=== PATIENT | male | born 1950 | race Caucasian/White ===

== ENCOUNTER 2017-12-09 15:15 | Emergency (ER) | payer MEDICARE ==
[2017-12-09 15:50] LABS: BASO # 0.1 10^3/uL (0.0-0.2); EOS # 0.2 10^3/uL (0.0-0.50); EOS % 2.4 % (0.0-3.0); HEMATOCRIT 51.4 % (42.0-52.0); HEMOGLOBIN 16.7 g/dl (13.5-17.5); IMMATURE GRANULOCYTE % 0.3 % (0-3.0); LYMPH # 1.2 10^3/uL (1.5-4.5); MEAN CORPUSCULAR HEMOGLOBIN 30.3 pg (27.0-33.0); MEAN CORPUSCULAR HGB CONC 32.5 g/dl (32.0-36.5); MEAN CORPUSCULAR VOLUME 93.3 fl (80.0-96.0); MONO # 0.8 10^3/uL (0.0-0.8); MONO % 8.3 % (0.0-5.0); NEUTROPHILS # 7.4 10^3/uL (1.8-7.7); PLATELET COUNT, AUTOMATED 220 10^3/uL (150-450); RED BLOOD COUNT 5.51 10^6/uL (4.30-6.10); RED CELL DISTRIBUTION WIDTH 14.4 % (11.5-14.5); WHITE BLOOD COUNT 9.7 10^3/uL (4.0-10.0)
[2017-12-09] MEDS: methylPREDNISolone INJ 125 MG/2 ML VIAL (J2930) IV (15:55)
[2017-12-09] MEDS: IPRATROPIUM 0.5MG/ALBUTEROL 2.5MG INH SOL UD 3ML (DUONEB)(J7620) NEB (16:20)
[2017-12-09 16:26] LABS: ANION GAP 7 MEQ/L (8-16); BLOOD UREA NITROGEN 13 MG/DL (7-18); CALCIUM LEVEL 9.3 MG/DL (8.8-10.2); CARBON DIOXIDE LEVEL 35 MEQ/L (21-32); CHLORIDE LEVEL 100 MEQ/L (98-107); CK-MB VALUE MASS 2.6 NG/ML (<3.6); CPK CREATINE PHOSPHOKINASE 155 U/L (39-308); CREATININE FOR GFR 0.74 MG/DL (0.70-1.30); GLOMERULAR FILTRATION RATE > 60.0 (>49); GLUCOSE, FASTING 135 MG/DL (70-100); MB/CK RELATIVE INDEX 1.67 (< OR =4); NT-PRO BNP 1274 PG/ML (<125); POTASSIUM SERUM 3.5 MEQ/L (3.5-5.1); SODIUM LEVEL 142 MEQ/L (136-145); TROPONIN I < 0.02 NG/ML (< 0.10)
[2017-12-09 16:27] LABS: LACTIC ACID SEPSIS PROTOCOL 1.5 MMOL/L (0.4-2.0)
[2017-12-09] MEDS: FUROSEMIDE 100 MG/10 ML VIAL (J1940) IV (17:30)
[2017-12-09 18:44] LABS: ABG BASE EXCESS 6.6 (-2.0-2.0); ABG HCO3 33.1 MEQ/L (22.0-26.0); ABG O2 SATURATION 87.1 % (95.0-99.0); ABG PARTIAL PRESSURE CO2 52.4 mmHg (35.0-45.0); ABG STANDARD HCO3 30.1 MEQ/L (22.0-26.0); ABG TOTAL CO2 34.7 MEQ/L (23.0-31.0); ABG pH (ARTERIAL) 7.418 UNITS (7.350-7.450)
[2017-12-09 18:46] LABS: ABG PARTIAL PRESSURE O2 49.3 mmHg (75.0-100.0)
[2017-12-09] MEDS ORDERED: ISOVUE-370 76% 100ML VIAL (Q9967) As Ordered (19:35)
== END 2017-12-09 20:49 | disposition left against medical advice (07) ==
LOC: M ED 15:15
DX: R09.02 Hypoxemia (principal); I50.9 Heart failure, unspecified; R06.02 Shortness of breath; Z95.0 Presence of cardiac pacemaker; I51.7 Cardiomegaly; I45.10 Unspecified right bundle-branch block; E78.5 Hyperlipidemia, unspecified; J44.9 Chronic obstructive pulmonary disease, unspecified; F41.9 Anxiety disorder, unspecified; K50.90 Crohn's disease, unspecified, without complications; Z90.49 Acquired absence of other specified parts of digestive tract; Z72.0 Tobacco use; Z53.21 Procedure and treatment not carried out due to patient leaving prior to being seen by health care provider
CPT/HCPCS: J1940

== ENCOUNTER 2020-01-03 12:14 | Inpatient (IN) | payer MEDICARE ==
[~2020-01-03] VITALS: Ht 175.3 cm; Wt 128.0 kg
[2020-01-03] MEDS: ENOXAPARIN 40MG/0.4ML SYRINGE (J1650 PER 10MG) SC SCH (09:00)
[~2020-01-03 12:14] MED LIST: AMLODIPINE PO; ASPI81TA26 PO; ATEN100T PO; ATEN50TA2 PO; CART240C3 PO; EXFO10TA2 PO; HYDR50TAB PO; KLOR10TA76 PO; PARO20TA4 PO; PRAV80TA2 PO; PRED-351 PO; SPIR1CAP INH; TORS10TA3 PO; TRIL135C6 PO; VALSARTAN PO; VITA-121 PO; VITMTA PO; ZETI10TA16 PO
[2020-01-03 13:18] LABS: BASO # 0.1 10^3/uL (0.0-0.2); EOS # 0.2 10^3/uL (0.0-0.5); EOS % 1.9 % (0.0-3.0); HEMATOCRIT 50.7 % (42.0-52.0); HEMOGLOBIN 15.7 g/dl (13.5-17.5); LYMPH # 0.8 10^3/uL (1.5-5.0); LYMPH % 9.6 % (24.0-44.0); MEAN CORPUSCULAR HEMOGLOBIN 28.3 pg (27.0-33.0); MEAN CORPUSCULAR VOLUME 91.5 fl (80.0-96.0); MONO # 0.7 10^3/uL (0.0-0.8); NEUTROPHILS # 6.1 10^3/uL (1.5-8.5); NEUTROPHILS % 78.2 % (36.0-66.0); PLATELET COUNT, AUTOMATED 268 10^3/uL (150-450); RED BLOOD COUNT 5.54 10^6/uL (4.30-6.10); WHITE BLOOD COUNT 7.9 10^3/uL (4.0-10.0)
[2020-01-03 13:25] LABS: ALBUMIN 3.1 GM/DL (3.2-5.2); ALT/SGPT 21 U/L (12-78); BILIRUBIN,DIRECT 0.2 MG/DL (0.0-0.2); BILIRUBIN,TOTAL 0.5 MG/DL (0.2-1.0); BLOOD UREA NITROGEN 27 MG/DL (7-18); CALCIUM LEVEL 9.7 MG/DL (8.8-10.2); CARBON DIOXIDE LEVEL 35 MEQ/L (21-32); CHLORIDE LEVEL 99 MEQ/L (98-107); CREATININE FOR GFR 0.98 MG/DL (0.70-1.30); GLOMERULAR FILTRATION RATE > 60.0 (>42); GLUCOSE, FASTING 99 MG/DL (70-100); NT-PRO BNP 4477 PG/ML (<125); POTASSIUM SERUM 3.9 MEQ/L (3.5-5.1); SODIUM LEVEL 138 MEQ/L (136-145); TOTAL PROTEIN 7.4 GM/DL (6.4-8.2)
[2020-01-03] MEDS ORDERED: FUROSEMIDE 40MG/4ML VIAL (J1940) IV ONE (13:45)
[2020-01-03] MEDS ORDERED: VITAD1000T PO (14:09)
[2020-01-03] MEDS ORDERED: FENO135C6 PO (14:09)
[2020-01-03] MEDS ORDERED: METF-839 PO (14:09)
[2020-01-03] MEDS ORDERED: TORS10TA3 PO (14:09)
[2020-01-03] MEDS ORDERED: POTA10TA16 PO (14:09)
--- NOTE | 2020-01-03 14:28 | REP ---
CHEST, SINGLE VIEW: Single view of the chest is performed and compared to several prior studies, most recently 12/09/2017. There is moderate cardiomegaly. There is pulmonary venous hypertension. There is a small right pleural effusion. There are increased interstitial markings in the lung bases which may represent mild bibasilar interstitial infiltrate/edema. There is a left dual-lead pacemaker which appears to be in good position. The mediastinal silhouette is unchanged. IMPRESSION: Moderate cardiomegaly with small right effusion. Possible mild bibasilar interstitial infiltrate/edema. Electronically Signed by Oswald Gardiner MD 01/04/2020 09:30 A
[2020-01-03 14:30] VITALS: BP 130/79
[2020-01-03 16:00] VITALS: BP 122/73
[2020-01-03] MEDS: FUROSEMIDE 40MG/4ML VIAL (J1940) IV SCH (17:51)
[2020-01-03 18:39] LABS: CK-MB VALUE MASS 1.4 NG/ML (<3.6); CPK CREATINE PHOSPHOKINASE 63 U/L (39-308); MB/CK RELATIVE INDEX 2.22 (< OR =4); TROPONIN I < 0.02 NG/ML (< 0.10)
[2020-01-03] MEDS ORDERED: SLF 3 ML SYR IV PRN (19:00)
[2020-01-03 20:00] VITALS: BP 122/65
[2020-01-03] MEDS: ASPIRIN 81 MG ENTERIC TAB PO SCH (20:52)
[2020-01-03] MEDS: PRAVASTATIN 20 MG TAB PO SCH (20:53)
[2020-01-03] MEDS: VITAMIN D 1,000 INTERNATIONAL UNITS TABLET PO SCH (20:53)
[2020-01-03] MEDS: atenoloL 50 MG TAB PO SCH (20:53)
[2020-01-03] MEDS: POTASSIUM CHLORIDE 10 MEQ SR TABLET PO SCH (20:53)
[2020-01-03] MEDS: SLF 3 ML SYR IV SCH (20:54)
[2020-01-04] VITALS: BP 116/59
--- NOTE | 2020-01-04 00:27 | ECGEPIP ---
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
[2020-01-04] MEDS: FUROSEMIDE 40MG/4ML VIAL (J1940) IV SCH ×5 (00:29→23:52)
[2020-01-04 01:32] LABS: CK-MB VALUE MASS 1.7 NG/ML (<3.6); CPK CREATINE PHOSPHOKINASE 69 U/L (39-308); MB/CK RELATIVE INDEX 2.46 (< OR =4); TROPONIN I < 0.02 NG/ML (< 0.10)
[2020-01-04 04:00] VITALS: BP 115/66
[2020-01-04] MEDS: SLF 3 ML SYR IV SCH ×3 (05:44→22:08)
[2020-01-04 05:58] LABS: BASO # 0.1 10^3/uL (0.0-0.2); BASO % 0.7 % (0.0-1.0); EOS # 0.1 10^3/uL (0.0-0.5); EOS % 1.5 % (0.0-3.0); HEMOGLOBIN 15.5 g/dl (13.5-17.5); LYMPH # 0.7 10^3/uL (1.5-5.0); MEAN CORPUSCULAR HEMOGLOBIN 28.7 pg (27.0-33.0); MEAN CORPUSCULAR VOLUME 92.4 fl (80.0-96.0); MONO # 0.7 10^3/uL (0.0-0.8); MONO % 9.3 % (0.0-5.0); NEUTROPHILS # 5.8 10^3/uL (1.5-8.5); NEUTROPHILS % 79.4 % (36.0-66.0); PLATELET COUNT, AUTOMATED 235 10^3/uL (150-450); RED BLOOD COUNT 5.41 10^6/uL (4.30-6.10); WHITE BLOOD COUNT 7.3 10^3/uL (4.0-10.0)
[2020-01-04 06:17] LABS: BLOOD UREA NITROGEN 19 MG/DL (7-18); CALCIUM LEVEL 8.9 MG/DL (8.8-10.2); CARBON DIOXIDE LEVEL 38 MEQ/L (21-32); CHLORIDE LEVEL 94 MEQ/L (98-107); CK-MB VALUE MASS 1.9 NG/ML (<3.6); CPK CREATINE PHOSPHOKINASE 62 U/L (39-308); CREATININE FOR GFR 0.88 MG/DL (0.70-1.30); GLOMERULAR FILTRATION RATE > 60.0 (>42); GLUCOSE, FASTING 92 MG/DL (70-100); MB/CK RELATIVE INDEX 3.06 (< OR =4); POTASSIUM SERUM 3.2 MEQ/L (3.5-5.1); SODIUM LEVEL 139 MEQ/L (136-145); TROPONIN I < 0.02 NG/ML (< 0.10)
[2020-01-04 07:03] VITALS: BP 118/63
[2020-01-04] MEDS: TIOTROPIUM INHALER/CAPSULE (SPIRIVA) INH SCH (07:08)
[2020-01-04] MEDS ORDERED: POTASSIUM CHLORIDE 10 MEQ SR TABLET PO ONE (07:15)
[2020-01-04] MEDS: ENOXAPARIN 40MG/0.4ML SYRINGE (J1650 PER 10MG) SC SCH (08:13)
[2020-01-04] MEDS: PARoxetine 20 MG TAB PO SCH (08:14)
[2020-01-04] MEDS: VITAMIN D 1,000 INTERNATIONAL UNITS TABLET PO SCH ×2 (08:14→20:48)
[2020-01-04] MEDS: atenoloL 50 MG TAB PO SCH ×2 (08:14→20:43)
--- NOTE | 2020-01-04 08:47 | IPNPDOC ---
Text Note Date of Service The patient was seen on 01/04/20. NOTE Subjective: Patient seen and examined at bedside. States he is feeling much better today. Breathing has improved. No acute overnight events reported. No new medical complaints this morning. Objective: General: NAD, sitting comfortably in chair HEENT: NC/AT, EOMI Lungs: diminished breath sounds b/l Heart: +S1S2, RRR Abd: soft, obese, NT, +BS Ext: b/l LE edema, b/l chronic venous stasis changes A/P: 69 yo male for decompensated congestive heart failure #CHF - echo pending - follows with Dr. Mcmullen - iv lasix H&P not available at time of documentation. VS,Fishbone, I+O VS, Fishbone, I+O Laboratory Tests 01/03/20 12:24 01/04/20 05:34 Vital Signs Date Time Temp Pulse Resp B/P (MAP) Pulse Ox O2 Delivery O2 Flow Rate FiO2 01/04/20 08:14 60 01/04/20 08:14 118/63 01/04/20 07:03 97.1 18 92 Nasal Cannula 4.0 I&O- Last 24 Hours up to 6 AM 01/04/20 06:00 Intake Total 390 ml Output Total 4140 ml Balance -3750 ml FRANTZ LAGUNAS MD Jan 04, 2020 08:47
[2020-01-04 12:00] VITALS: BP 105/59
[2020-01-04 16:00] VITALS: BP 108/55
[2020-01-04 18:00] VITALS: BP 108/62
[2020-01-04] MEDS: PRAVASTATIN 20 MG TAB PO SCH (20:48)
[2020-01-04] MEDS: ASPIRIN 81 MG ENTERIC TAB PO SCH (20:48)
[2020-01-04] MEDS: POTASSIUM CHLORIDE 10 MEQ SR TABLET PO SCH (20:48)
[2020-01-05] VITALS: BP 119/62
[2020-01-05 04:00] VITALS: BP 136/72
[2020-01-05 05:29] LABS: BASO # 0.1 10^3/uL (0.0-0.2); BASO % 0.8 % (0.0-1.0); EOS # 0.1 10^3/uL (0.0-0.5); EOS % 1.5 % (0.0-3.0); HEMATOCRIT 51.5 % (42.0-52.0); HEMOGLOBIN 15.6 g/dl (13.5-17.5); LYMPH # 0.8 10^3/uL (1.5-5.0); LYMPH % 10.3 % (24.0-44.0); MEAN CORPUSCULAR HEMOGLOBIN 28.7 pg (27.0-33.0); MEAN CORPUSCULAR HGB CONC 30.3 g/dl (32.0-36.5); MEAN CORPUSCULAR VOLUME 94.7 fl (80.0-96.0); MONO # 0.7 10^3/uL (0.0-0.8); MONO % 9.1 % (0.0-5.0); NEUTROPHILS # 5.9 10^3/uL (1.5-8.5); PLATELET COUNT, AUTOMATED 231 10^3/uL (150-450); RED BLOOD COUNT 5.44 10^6/uL (4.30-6.10); WHITE BLOOD COUNT 7.6 10^3/uL (4.0-10.0)
[2020-01-05 05:49] LABS: BLOOD UREA NITROGEN 18 MG/DL (7-18); CALCIUM LEVEL 8.6 MG/DL (8.8-10.2); CARBON DIOXIDE LEVEL 40 MEQ/L (21-32); CHLORIDE LEVEL 94 MEQ/L (98-107); CREATININE FOR GFR 0.85 MG/DL (0.70-1.30); GLOMERULAR FILTRATION RATE > 60.0 (>42); GLUCOSE, FASTING 90 MG/DL (70-100); POTASSIUM SERUM 3.2 MEQ/L (3.5-5.1); SODIUM LEVEL 140 MEQ/L (136-145)
[2020-01-05] MEDS: FUROSEMIDE 40MG/4ML VIAL (J1940) IV SCH ×3 (06:00→17:34)
[2020-01-05] MEDS: SLF 3 ML SYR IV SCH ×3 (06:00→21:24)
--- NOTE | 2020-01-05 07:08 | HPE ---
DATE OF ADMISSION: 01/03/2020 CHIEF COMPLAINT: Shortness of breath. HISTORY OF PRESENTING ILLNESS: This is a 69-year-old male with history significant for obesity, diabetes, chronic obstructive pulmonary disease (COPD), congestive heart failure, diastolic dysfunction, restless legs, nonalcoholic steatohepatitis, hypertension, anxiety, vitamin D deficiency, Crohn disease, bowel obstruction, pacemaker placement due to bradycardia, active tobacco use, and hyperlipidemia with bowel resection due to bowel obstruction, laceration of the distal left little finger, and laceration of the tip of the left index finger. Was in his usual state of health until about 3 weeks ago, when he noticed increasing shortness of breath, lower extremity edema, difficulty walking with dyspnea on exertion, and 18-pound weight gain. Patient says that the "fluid buildup got so bad that blisters started weeping in his legs." He also says that he has had increasing abdominal distention. Has felt that he was having difficulty lying flat and has been sleeping on his recliner. Patient admits to fluid and dietary indiscretion. Has not been put on fluid restriction and admits to "eating crap." Typical meals are usually things that he picks up from [employer], such as sliders, mccurdy and egg croissant sandwiches, or ham sandwiches. Patient says that he does not cook at home or eat at restaurants, usually just picks up things everywhere. He otherwise denies any chest pain, pressure or tightness, lightheadedness, or dizziness. Denies any palpitations. Has had no prior episode of hospital admission for heart failure. Never had coronary artery disease (CAD) or myocardial infarction (MN) in the past. He denied any history of atrial fibrillation, atrial flutter, multifocal atrial tachycardia (MAT). Patient has never been evaluated by pulmonary function testing for COPD but was diagnosed with COPD by his primary care physician. Patient was never sent for a sleep study for obstructive sleep apnea and says that he is not sure if he snores at night, as he lives by himself. Patient otherwise denies any fever or chills, changes in vision, rhinorrhea, diplopia, blurred vision, sore throat, tinnitus, vertigo. Denies any dysuria, urgency, frequency, fever, chills, flank pain. No nausea, vomiting, diarrhea. No abdominal pain. Patient denies any paresthesias. All other systems negative. In the emergency room (ER), he was found to be significantly fluid overloaded with rales and 3+ pitting edema to the sacrum. Chest x-ray shows bibasilar edema and small right pleural effusion. Hospitalist was called to admit for congestive heart failure. He was found to be hypoxic, 81% on room air. PAST MEDICAL HISTORY: 1. Congestive heart failure with preserved systolic function, 65%. 2. Left ventricular hypertrophy (LVH). 3. Moderate pulmonary hypertension. 4. Grade 2 diastolic dysfunction on echocardiogram done by Dr. Meneses 03/14/2016. 5. Morbid obesity. 6. COPD. 7. Depression. 8. Hypertension. 9. Crohn disease. 10. Hyperlipidemia. 11. Pacemaker placement due to bradycardia. 12. Restless leg syndrome. 13. Depression. 14. Nonalcoholic steatohepatitis. 15. Impotence. PAST SURGICAL HISTORY: 1. Amputation distal left little finger. 2. Laceration of tip of the left index finger. 3. Pacemaker insertion. 4. Bowel resection due to small bowel obstruction 1998. HOME MEDICATION: - Farxiga 5 mg - diltiazem 240 mg - baclofen 10 mg - fenofibric acid 135 mg daily - Prevacid 80 mg - metformin 500 mg - hydroxyzine 25 daily - amlodipine/valsartan 10/320 one tablet daily - atenolol 50 mg daily - Spiriva inhaled 18 mcg - Paxil 20 mg daily - potassium 10 mEq - torsemide 10 mg - hydrochlorothiazide 50 mg - vitamin D 1000 units daily - aspirin 81 daily - Zetia 10 mg daily - multivitamin one tablet daily ALLERGIES: To REQUIP. SOCIAL HISTORY: . Lives alone. Completed 12th grade education. Patient retired at the age of 57 after working for [employer]. Patient continues to smoke a pack of cigarettes a day. Drank six packs of beer previously, currently down to 3-4 beers a week. Patient denies any heroin or cocaine use but occasional marijuana use. REVIEW OF SYSTEMS: Per history of presenting illness (HPI). 12-point system otherwise negative. PHYSICAL EXAMINATION: Temperature 97.1, pulse 60, respiratory rate 24, blood pressure 122/73, 81% on room air, 88% on 2 liters nasal cannula. Generally: Patient is awake, alert, oriented to person, place, and time. Appears his stated age. Positive jugular venous distention (JVD). No thyromegaly or cervical lymphadenopathy. Moist mucous membranes. No conversational dyspnea. Patient has no pallor, icterus, or jaundice. Lungs: Diminished with bilateral rales. Heart: S1, S2, sinus rhythm. No murmurs, rubs, or gallops. Displaced point of maximal impulse. Abdomen: Obese, soft, nontender. Positive fluid wave. Significant erythema under the pannus. Extremities: Chronic venous stasis changes with excoriations and 3+ pitting edema to the sacrum. LABORATORY DATA: White count 7.9, hemoglobin 15, hematocrit 50, platelet count 268. Sodium 138, potassium 3.9, chloride 99, bicarbonate 35, BUN 27, creatinine 0.98, glucose of 99, calcium 9.7, total bilirubin 0.5, direct bilirubin 0.2, AST 18, ALT 21, alkaline phosphatase 54, BNP 4477, total protein 7.4, albumin of 3.1. ASSESSMENT AND PLAN: This is a 69-year-old morbidly obese male with body mass index (BMI) 47.8, probable sleep apnea, chronic obstructive pulmonary disease, not on home oxygen or steroid dependent, diastolic heart failure, ejection fraction (EF) of 65% on echocardiogram in 2016, diabetes, hypertension, metabolic syndrome, nonalcoholic steatohepatitis, essential hypertension, hypercholesterolemia, Crohn disease with small bowel resection, active smoker, and alcohol abuse, presents to the emergency room with 18-pound weight gain over the past 3 weeks and worsening lower extremity edema, dyspnea on exertion, dyspnea at rest, found to have congestive heart failure exacerbation. EKG on arrival showed paced rhythm, ventricular rate of 60. IMPRESSION: 1. Acute on chronic congestive heart failure (CHF) exacerbation with preserved systolic ejection fraction, ejection fraction of 65% on echocardiogram in 2016. Patient will be kept on strict intake and output, daily weights, fluid restriction of 2 liters. Lasix 40 IV every 6 hours until patient is euvolemic. Cardiac markers will be checked every 6 hours to rule out acute coronary syndrome. Will check lipid panel in the morning, TSH, and magnesium, potassium to be replated if the potassium level is less than 3.5, magnesium less than 2. Telemetry monitoring to rule out arrhythmia as cause of patient's acute exacerbation. Patient clearly admits to dietary indiscretion with both fluid restriction as well as salt intake and admits to eating out most of the time by picking up food from [employer]. 2. Hypertension. Patient takes atenolol 50 mg every morning and 100 mg nightly. Will continue but with holding parameters as well as diltiazem 240 mg daily. His hydrochlorothiazide will be held for now. 3. Type 2 diabetes. Hold off on metformin in light of acute congestive heart failure. Will place on sliding scale, consistent-carbohydrate diet, and fingersticks before food, nightly. 4. Depression. On paroxetine 20 daily. 5. Dyslipidemia. On pravastatin. 6. Chronic obstructive pulmonary disease. Nebulizers as needed. Continue on Spiriva. Patient has a healthcare proxy, his sister, Yael Mitchell. He does not have the current phone number at this time. He is a FULL CODE. MTDD
[2020-01-05] MEDS: TIOTROPIUM INHALER/CAPSULE (SPIRIVA) INH SCH (07:22)
[2020-01-05 08:00] VITALS: BP 119/63
[2020-01-05 08:05] LABS: NT-PRO BNP 2892 PG/ML (<125)
--- NOTE | 2020-01-05 08:07 | IPNPDOC ---
Text Note Date of Service The patient was seen on 01/05/20. NOTE Subjective: Patient seen and examined at bedside. No acute overnight events reported. No new medical complaints this morning. Objective: General: NAD, sitting comfortably in chair HEENT: NC/AT, EOMI Lungs: diminished breath sounds b/l Heart: +S1S2, RRR Abd: soft, obese, NT, +BS Ext: b/l LE edema, b/l chronic venous stasis changes A/P: 69 yo male for decompensated congestive heart failure #CHF - known history of HFpEF - echo pending - follows with Dr. Mcmullen - nano wright - daily weights, I/O's - CT chest today for further info - results seen - d/w pulm - continue with cu rrent management for CHF # Moderate pulmonary hypertension. - further contributing factor to SOB #Morbid obesity. - complicates care - suspect underlying OHS/AAMIR #COPD. #Hypertension. #Crohn disease. #Hyperlipidemia. #Pacemaker placement due to bradycardia. #Restless leg syndrome. #Depression. # Nonalcoholic steatohepatitis. #nicotine abuse, marijuana use #DVT prophylaxis VS,Fishbone, I+O VS, Fishbone, I+O Laboratory Tests 01/05/20 04:45 Vital Signs Date Time Temp Pulse Resp B/P (MAP) Pulse Ox O2 Delivery O2 Flow Rate FiO2 01/05/20 04:00 98.1 60 20 136/72 (93) 89 Nasal Cannula 4.0 I&O- Last 24 Hours up to 6 AM 01/05/20 05:59 Intake Total 990 ml Output Total 2225 ml Balance -1235 ml FRANTZ LAGUNAS MD Jan 05, 2020 08:07
[2020-01-05] MEDS: atenoloL 50 MG TAB PO SCH ×2 (08:08→21:23)
[2020-01-05] MEDS: ENOXAPARIN 40MG/0.4ML SYRINGE (J1650 PER 10MG) SC SCH (08:09)
[2020-01-05] MEDS: PARoxetine 20 MG TAB PO SCH (08:09)
[2020-01-05] MEDS: VITAMIN D 1,000 INTERNATIONAL UNITS TABLET PO SCH ×2 (08:09→21:23)
[2020-01-05] MEDS ORDERED: ISOVUE-370 76% 100ML VIAL As Ordered ONE (08:24)
[2020-01-05] MEDS ORDERED: POTASSIUM CHLORIDE 10 MEQ SR TABLET PO ONE (09:00)
--- NOTE | 2020-01-05 10:47 | REP ---
REASON FOR EXAM: Dyspnea. The latest prior for comparison 03/13/2016. CONTRAST: 100 mL Isovue 370. Subcarinal adenopathy is again noted status quo. Borderline right paratracheal lymph nodes have developed since the last exam. The prior exam showed respiratory motion artifact obscuring, for the most part, that area of the chest. There is a new small right pleural effusion. There is no pericardial effusion. The imaged upper abdomen shows a small amount of ascites along the lateral hepatic edge. This represents a change from the prior exam. The imaged osseous structures are unchanged. There is an unchanged ventral rent. Evaluation of the lung azar shows patchy bibasilar opacities and patchy opacities in the dependent right middle lobe. IMPRESSION: 1. Adenopathy as described above. 2. Right pleural effusion. 3. Patchy lung field opacities as described above suggestive of subsegmental atelectatic change/possible pneumonia. 4. I cannot rule out the possibility of a malignant effusion. 5. Free fluid in the abdomen, etiology uncertain. 6. Celiac axis adenopathy and ventral hernia unchanged. Electronically Signed by Richard Parker DO 01/05/2020 03:55 P
[2020-01-05 11:26] LABS: LDH LACTATE DEHYDROGENASE 171 U/L (87-241)
[2020-01-05 12:00] VITALS: BP 115/64
[2020-01-05 16:00] VITALS: BP 107/59
[2020-01-05 18:00] VITALS: BP 117/57
[2020-01-05] MEDS: ASPIRIN 81 MG ENTERIC TAB PO SCH (21:21)
[2020-01-05] MEDS: POTASSIUM CHLORIDE 10 MEQ SR TABLET PO SCH (21:21)
[2020-01-05] MEDS: PRAVASTATIN 20 MG TAB PO SCH (21:21)
[2020-01-06] VITALS (12 sets, daily range): BP systolic 31–131; BP diastolic 2–72; O2SAT 87–94
[2020-01-06] MEDS: FUROSEMIDE 40MG/4ML VIAL (J1940) IV SCH ×4 (00:35→17:17)
[2020-01-06 05:20] LABS: BASO # 0.1 10^3/uL (0.0-0.2); EOS # 0.2 10^3/uL (0.0-0.5); EOS % 3.1 % (0.0-3.0); HEMATOCRIT 50.1 % (42.0-52.0); HEMOGLOBIN 15.1 g/dl (13.5-17.5); LYMPH # 0.7 10^3/uL (1.5-5.0); LYMPH % 9.2 % (24.0-44.0); MEAN CORPUSCULAR HGB CONC 30.1 g/dl (32.0-36.5); MEAN CORPUSCULAR VOLUME 92.9 fl (80.0-96.0); MONO # 0.8 10^3/uL (0.0-0.8); MONO % 10.7 % (0.0-5.0); NEUTROPHILS # 5.4 10^3/uL (1.5-8.5); NEUTROPHILS % 75.9 % (36.0-66.0); PLATELET COUNT, AUTOMATED 216 10^3/uL (150-450); RED BLOOD COUNT 5.39 10^6/uL (4.30-6.10); WHITE BLOOD COUNT 7.1 10^3/uL (4.0-10.0)
[2020-01-06 05:43] LABS: BLOOD UREA NITROGEN 15 MG/DL (7-18); CALCIUM LEVEL 8.5 MG/DL (8.8-10.2); CARBON DIOXIDE LEVEL 40 MEQ/L (21-32); CHLORIDE LEVEL 96 MEQ/L (98-107); CREATININE FOR GFR 0.76 MG/DL (0.70-1.30); GLOMERULAR FILTRATION RATE > 60.0 (>42); GLUCOSE, FASTING 92 MG/DL (70-100); MAGNESIUM LEVEL 2.1 MG/DL (1.8-2.4); POTASSIUM SERUM 3.2 MEQ/L (3.5-5.1); SODIUM LEVEL 138 MEQ/L (136-145)
[2020-01-06] MEDS: SLF 3 ML SYR IV SCH ×3 (06:19→21:08)
[2020-01-06] MEDS: TIOTROPIUM INHALER/CAPSULE (SPIRIVA) INH SCH (07:36)
[2020-01-06] MEDS: POTASSIUM CHLORIDE 10 MEQ SR TABLET PO SCH ×3 (07:37→21:07)
[2020-01-06] MEDS: atenoloL 50 MG TAB PO SCH ×2 (08:33→21:07)
[2020-01-06] MEDS: PARoxetine 20 MG TAB PO SCH (08:36)
[2020-01-06] MEDS: VITAMIN D 1,000 INTERNATIONAL UNITS TABLET PO SCH ×2 (08:36→21:05)
[2020-01-06] MEDS: ENOXAPARIN 40MG/0.4ML SYRINGE (J1650 PER 10MG) SC SCH (08:37)
--- NOTE | 2020-01-06 09:07 | IPNPDOC ---
Text Note Date of Service The patient was seen on 01/06/20. NOTE Subjective: Patient seen and examined at bedside. No acute overnight events reported. No new medical complaints this morning. States he is feeling better, and is breathing feels better. Objective: General: NAD, sitting comfortably in chair, eating breakfast HEENT: NC/AT, EOMI Lungs: diminished breath sounds b/l Heart: +S1S2, RRR Abd: soft, obese, NT, +BS Ext: b/l LE edema, b/l chronic venous stasis changes A/P: 69 yo male for decompensated congestive heart failure #CHF - known history of HFpEF - echo pending - follows with Dr. Mcmullen - iv lasix - daily weights, I/O's - CT chest noted - d/w pulm - continue with current management for CHF # Moderate pulmonary hypertension. - further contributing factor to SOB #Morbid obesity. - complicates care - suspect underlying OHS/AAMIR #COPD. #Hypertension. #Crohn disease. #Hyperlipidemia. #Pacemaker placement due to bradycardia. #Restless leg syndrome. #Depression. # Nonalcoholic steatohepatitis. #nicotine abuse - notes extensive nicotine abuse, and marijuana use #DVT prophylaxis Dispo: Continue current treatment plan with IV diuresis, suspect he has had underlying respiratory distress for some time, he may need oxygen on discharge. Will need o/p sleep studies. Will obtain nocturnal oximetry. VS,Fishbone, I+O VS, Fishbone, I+O Laboratory Tests 01/06/20 05:04 Vital Signs Date Time Temp Pulse Resp B/P (MAP) Pulse Ox O2 Delivery O2 Flow Rate FiO2 01/06/20 08:33 56 109/59 01/06/20 08:00 4.0 01/06/20 07:23 97.1 20 98 Nasal Cannula I&O- Last 24 Hours up to 6 AM 01/06/20 06:00 Intake Total 408 ml Output Total 2690 ml Balance -2282 ml FRANTZ LAGUNAS MD Jan 06, 2020 09:07
[2020-01-06] MEDS: PRAVASTATIN 20 MG TAB PO SCH (21:05)
[2020-01-06] MEDS: ASPIRIN 81 MG ENTERIC TAB PO SCH (21:07)
[2020-01-07] VITALS (23 sets, daily range): BP systolic 116–144; BP diastolic 61–78; O2SAT 85–92
[2020-01-07] MEDS: FUROSEMIDE 40MG/4ML VIAL (J1940) IV SCH ×4 (00:04→17:21)
[2020-01-07] MEDS: RAMELTEON 8 MG TAB (ROZEREM) PO PRN ×2 (01:08→21:13)
[2020-01-07] MEDS: SLF 3 ML SYR IV SCH ×3 (05:12→21:15)
[2020-01-07 05:48] LABS: BASO # 0.1 10^3/uL (0.0-0.2); BASO % 0.9 % (0.0-1.0); EOS # 0.1 10^3/uL (0.0-0.5); EOS % 1.6 % (0.0-3.0); HEMATOCRIT 52.4 % (42.0-52.0); HEMOGLOBIN 15.5 g/dl (13.5-17.5); LYMPH # 0.7 10^3/uL (1.5-5.0); LYMPH % 9.2 % (24.0-44.0); MEAN CORPUSCULAR HEMOGLOBIN 27.9 pg (27.0-33.0); MEAN CORPUSCULAR HGB CONC 29.6 g/dl (32.0-36.5); MEAN CORPUSCULAR VOLUME 94.4 fl (80.0-96.0); MONO # 0.8 10^3/uL (0.0-0.8); MONO % 9.9 % (0.0-5.0); NEUTROPHILS # 5.9 10^3/uL (1.5-8.5); NEUTROPHILS % 78.1 % (36.0-66.0); PLATELET COUNT, AUTOMATED 222 10^3/uL (150-450); RED BLOOD COUNT 5.55 10^6/uL (4.30-6.10); WHITE BLOOD COUNT 7.5 10^3/uL (4.0-10.0)
[2020-01-07 06:07] LABS: BLOOD UREA NITROGEN 17 MG/DL (7-18); CALCIUM LEVEL 8.8 MG/DL (8.8-10.2); CARBON DIOXIDE LEVEL 38 MEQ/L (21-32); CHLORIDE LEVEL 98 MEQ/L (98-107); CREATININE FOR GFR 0.81 MG/DL (0.70-1.30); GLOMERULAR FILTRATION RATE > 60.0 (>42); GLUCOSE, FASTING 100 MG/DL (70-100); MAGNESIUM LEVEL 2.1 MG/DL (1.8-2.4); POTASSIUM SERUM 3.4 MEQ/L (3.5-5.1); SODIUM LEVEL 138 MEQ/L (136-145)
[2020-01-07] MEDS ORDERED: POTASSIUM CHLORIDE 10 MEQ SR TABLET PO ONE (07:00)
[2020-01-07] MEDS: ENOXAPARIN 40MG/0.4ML SYRINGE (J1650 PER 10MG) SC SCH ×2 (07:24→22:12)
[2020-01-07] MEDS: atenoloL 50 MG TAB PO SCH ×2 (08:31→21:00)
[2020-01-07] MEDS: PARoxetine 20 MG TAB PO SCH (08:33)
[2020-01-07] MEDS: VITAMIN D 1,000 INTERNATIONAL UNITS TABLET PO SCH ×2 (08:33→21:14)
--- NOTE | 2020-01-07 09:17 | IPNPDOC ---
Text Note Date of Service The patient was seen on 01/07/20. NOTE Subjective: Patient seen and examined at bedside. No acute overnight events reported. No new medical complaints this morning. Continues to feel better, and is breathing feels better. Objective: General: NAD, sitting comfortably in chair HEENT: NC/AT, EOMI Lungs: diminished but improving breath sounds b/l Heart: +S1S2, RRR Abd: soft, obese, NT, +BS Ext: b/l LE edema, b/l chronic venous stasis changes A/P: 69 yo male for decompensated congestive heart failure #CHF - known history of HFpEF - echo pending report - follows with Dr. Mcmullen - iv lasix - continues to maintain net negative balance - renal function stable - daily weights, I/O's - CT chest noted - d/w pulm - continue with current management for CHF # Moderate pulmonary hypertension. - further contributing factor to SOB #Morbid obesity. - complicates care - suspect underlying OHS/AAMIR #acute hypoxic respiratory failure - as per above secondary to decompensated acute/chronic HFpEF #COPD - minimal wheezes on exam #Hypertension. #Crohn disease. #Hyperlipidemia. #Pacemaker placement due to bradycardia. #Restless leg syndrome. #Depression. # Nonalcoholic steatohepatitis. #nicotine abuse - notes extensive nicotine abuse, and marijuana use #DVT prophylaxis - lovenox Dispo: Continue current treatment plan with IV diuresis, suspect he has had underlying respiratory distress for some time, he may need oxygen on discharge. Will need o/p sleep studies. Will obtain nocturnal oximetry. VS,Fishbone, I+O VS, Fishbone, I+O Laboratory Tests 01/07/20 05:29 Vital Signs Date Time Temp Pulse Resp B/P (MAP) Pulse Ox O2 Delivery O2 Flow Rate FiO2 01/07/20 08:31 59 125/67 01/07/20 08:00 97.2 18 94 Nasal Cannula 5.0 I&O- Last 24 Hours up to 6 AM 01/07/20 06:00 Intake Total 1130 ml Output Total 4080 ml Balance -2950 ml FRANTZ LAGUNAS MD Jan 07, 2020 09:17
[2020-01-07] MEDS: TIOTROPIUM INHALER/CAPSULE (SPIRIVA) INH SCH (11:13)
[2020-01-07] MEDS ORDERED: NYSTATIN 100,000 UNITS/GM TOPICAL PWD 15 GM TOP PRN (17:45)
[2020-01-07 18:20] LABS: ABG BASE EXCESS 10.6 (-2.0-2.0); ABG HCO3 39.8 MEQ/L (22.0-26.0); ABG O2 SATURATION 95.3 % (95.0-99.0); ABG STANDARD HCO3 34.4 MEQ/L (22.0-26.0); ABG pH (ARTERIAL) 7.358 UNITS (7.350-7.450)
[2020-01-07 18:26] LABS: ABG PARTIAL PRESSURE CO2 72.4 mmHg (35.0-45.0)
[2020-01-07] MEDS ORDERED: IPRATROPIUM 0.5MG/ALBUTEROL 2.5MG INH SOL UD 3ML (DUONEB) NEB PRN (18:30)
[2020-01-07] MEDS ORDERED: methylPREDNISolone 125MG 2ML VIAL IV ONE (19:00)
[2020-01-07] MEDS ORDERED: ALBUTEROL SULFATE 2.5 MG/0.5 ML INH NEB SOLN INH PRN (19:00)
--- NOTE | 2020-01-07 19:31 | REP ---
AP PORTABLE CHEST: 01/07/2020. Clinical history: Dyspnea. Comparison: CT 01/05/2020, AP chest 01/03/2020. Findings: A dual lead pacer over the left upper chest with leads terminating in the right atrium and right ventricle. There is cardiomegaly with left atrial and ventricular enlargement and probable right heart enlargement, vascular congestion is again seen but vessel engorgement of the upper lobe is slightly less. There may be slight improvement in the bibasilar atelectasis or infiltrates. The aorta is unchanged and normal for age. Airway midline. No widening of the mediastinum. Bones with degenerative changes spine and shoulders, stable. Impression: 1. Multi lead pacer unchanged with cardiomegaly, and some improvement in the vascular redistribution. 2. The same or slight improvement in the bibasilar areas of patchy infiltrate or atelectasis since the prior chest x-ray 01/03/2020. Electronically Signed by Duncan Raines MD 01/07/2020 07:22 P
[2020-01-07] MEDS: IPRATROPIUM 0.5MG/ALBUTEROL 2.5MG INH SOL UD 3ML (DUONEB) NEB SCH ×2 (20:28→23:24)
[2020-01-07] MEDS: ASPIRIN 81 MG ENTERIC TAB PO SCH (21:13)
[2020-01-07] MEDS: PRAVASTATIN 20 MG TAB PO SCH (21:13)
[2020-01-07] MEDS: POTASSIUM CHLORIDE 10 MEQ SR TABLET PO SCH (21:14)
[2020-01-08] VITALS (8 sets, daily range): BP systolic 125–150; BP diastolic 63–78; O2SAT 89–90
[2020-01-08] MEDS: FUROSEMIDE 40MG/4ML VIAL (J1940) IV SCH ×4 (00:25→17:00)
[2020-01-08] MEDS: IPRATROPIUM 0.5MG/ALBUTEROL 2.5MG INH SOL UD 3ML (DUONEB) NEB SCH ×6 (04:08→23:48)
[2020-01-08] MEDS: SLF 3 ML SYR IV SCH ×3 (05:18→21:38)
[2020-01-08 05:21] LABS: BASO % 0.1 % (0.0-1.0); HEMATOCRIT 51.3 % (42.0-52.0); HEMOGLOBIN 15.7 g/dl (13.5-17.5); LYMPH # 0.3 10^3/uL (1.5-5.0); LYMPH % 3.7 % (24.0-44.0); MEAN CORPUSCULAR HEMOGLOBIN 28.3 pg (27.0-33.0); MEAN CORPUSCULAR HGB CONC 30.6 g/dl (32.0-36.5); MEAN CORPUSCULAR VOLUME 92.4 fl (80.0-96.0); MONO # 0.1 10^3/uL (0.0-0.8); MONO % 0.8 % (0.0-5.0); NEUTROPHILS # 7.3 10^3/uL (1.5-8.5); NEUTROPHILS % 95.3 % (36.0-66.0); PLATELET COUNT, AUTOMATED 207 10^3/uL (150-450); RED BLOOD COUNT 5.55 10^6/uL (4.30-6.10); WHITE BLOOD COUNT 7.7 10^3/uL (4.0-10.0)
[2020-01-08 05:55] LABS: ALT/SGPT 28 U/L (12-78); BILIRUBIN,TOTAL 0.4 MG/DL (0.2-1.0); BLOOD UREA NITROGEN 18 MG/DL (7-18); CALCIUM LEVEL 9.2 MG/DL (8.8-10.2); CARBON DIOXIDE LEVEL 35 MEQ/L (21-32); CHLORIDE LEVEL 99 MEQ/L (98-107); CREATININE FOR GFR 0.88 MG/DL (0.70-1.30); GLOMERULAR FILTRATION RATE > 60.0 (>42); GLUCOSE, FASTING 163 MG/DL (70-100); LDH LACTATE DEHYDROGENASE 232 U/L (87-241); MAGNESIUM LEVEL 2.1 MG/DL (1.8-2.4); POTASSIUM SERUM 4.2 MEQ/L (3.5-5.1); SODIUM LEVEL 139 MEQ/L (136-145); TOTAL PROTEIN 8.1 GM/DL (6.4-8.2)
[2020-01-08] MEDS: TIOTROPIUM INHALER/CAPSULE (SPIRIVA) INH SCH (07:26)
--- NOTE | 2020-01-08 07:52 | ECHO ---
DATE OF PROCEDURE: 01/05/2020 DATE OF : 1950 REFERRING PROVIDER: Dr. Pallavi Bowman PATIENT LOCATION: Room 3220 REASON FOR STUDY: Shortness of breath. 2-D MEASUREMENTS: IVS: 1.3 cm LV: 5.0 cm LVPW: 1.3 cm LA: 5.1 cm Aorta: 3.6 cm DOPPLER MEASUREMENTS: Peak velocity across the aortic valve: 1.4 m/s Peak velocity across the LVOT: 1.0 m/s Maximum tricuspid valve velocity: 3.4 m/s 2-D COMMENTS: 1. Normal left ventricular size with mildly increased left ventricular wall thickness. Left ventricular systolic function is normal, estimated at 60-65%. 2. Moderately enlarged left atrium. Markedly dilated right atrium and right ventricle. The right ventricular free wall was not well visualized, but appeared to be hypokinetic. 3. The atrial septum appeared to be normal without evidence of defect or shunt. 4. Normal aortic root. 5. No pericardial effusion seen. 6. Minimally calcified aortic valve with normal leaflet excursion. Mildly calcified mitral annulus with normal anterior mitral valve leaflet motion. Normal tricuspid valve. The pulmonic valve and proximal pulmonary artery branches appear to be normal. 7. The inferior vena cava was not well visualized, but appeared to be enlarged in limited views. DOPPLER: It detects trace mitral regurgitation and moderate tricuspid regurgitation. The calculated pulmonary artery systolic pressure varies between 40-50 mmHg. Assessment of the left ventricular diastolic function was limited. IMPRESSIONS: 1. Normal global left ventricular systolic function with mild concentric left ventricular hypertrophy. Assessment of the left ventricular diastolic function was limited. 2. Aortic valve sclerosis without stenosis or aortic regurgitation. 3. Moderately enlarged left atrium with mitral annulus calcification and trace mitral regurgitation. 4. Moderate tricuspid radiation with moderate pulmonary hypertension and dilated right heart chambers. There may be findings of right ventricular systolic dysfunction. 5. Pacemaker wire artifacts noted in the right heart chambers.
[2020-01-08] MEDS: PARoxetine 20 MG TAB PO SCH (08:58)
[2020-01-08] MEDS: VITAMIN D 1,000 INTERNATIONAL UNITS TABLET PO SCH ×2 (08:58→21:38)
[2020-01-08] MEDS: atenoloL 50 MG TAB PO SCH ×2 (08:59→21:38)
--- NOTE | 2020-01-08 11:25 | IPNPDOC ---
Text Note Date of Service The patient was seen on 01/08/20. NOTE Mr. Grande was seen this AM and stated that his condition is improving. He states that he feels like his breathing is back to baseline and that he feels much less fluid overloaded than he was on admission. He states that his extremities are less swollen and that the blister on his legs are no longer secreting fluids. He denies any headaches, chest pain, SOB, abdominal pain. Physical Exam: Vitals: See Below General: Obese male sitting up in a chair in no apparent distress HEENT: Normal sclera. EOMI. No JVD. Normal sclera CV: RRR with muffled heart sounds. No murmurs, rubs, gallops Respiratory: Lungs CTA B/L. No signs of fluid overload Abdomen: Soft and nontender. Nondistended. Extremities: 1+ pitting edema in legs B/L. Dusky, erythematous patches on ant erior shins with multiple excoriations in different healing states on LE B/L. Assessment and Plan: Mr. Grande is a 69 year old man who was admitted for 3 weeks of progressively worse SOB, LE edema, dyspnea of exertion, and a 18 pound weight gain 2/2 exacerbation of his HFwPEF. He is currently being diuresed with great effect on his presentation. #Hfpef exacerbation: -Continue Lasix 40mg IV Q6H -Monitor for signs of decreased perfusion as patient is being diuresed. -Patient still has trace pitting edema in LE up to his calves #Acute Hypoxic Hypercapnic Respiratory Failure: -Likely multifactorial to include his COPD, CHF, suspected AAMIR/Obesity hypoventilation syndrome, deconditioning -Will likely need to discharge with home oxygen therapy -Should F/U outpatient with pulmonary to better manage his COPD and actually give him PFTs to diagnose and stage his disease -Continue Spiriva and Albuterol inhaler treatment -Patient encouraged to use incentive spirometry -Nocturnal Oxygenation study ordered and pending -Will likely recommend F/U with sleep specialist for AAMIR diagnosis outpatient -Patient also has moderate pulmonary hypertension which is contributing to the patient's SOB -Diagnostic thoracocentesis ordered and pending for today with cytology studies of pleural fluid ordered #HTN: -Continue Atenolol 50 mg QAM PO -Continue Diltiazem HCl 240 mg QD PO #DVT Prophylaxis -Continue Lovenox Attending attestation: Patient independently seen and evaluated, agree with yenny n. VS,Peggy, I+O VS, Peggy, I+O Laboratory Tests 01/08/20 05:09 Vital Signs Date Time Temp Pulse Resp B/P (MAP) Pulse Ox O2 Delivery O2 Flow Rate FiO2 01/08/20 08:59 71 137/72 01/08/20 08:00 5.0 01/08/20 08:00 96.7 18 94 Nasal Cannula I&O- Last 24 Hours up to 6 AM 01/08/20 06:00 Intake Total 660 ml Output Total 2900 ml Balance -2240 ml LUCHO ELAM OMS-3 Jan 08, 2020 11:25 FRANZT LAGUNAS MD Jan 14, 2020 22:38
[2020-01-08] MEDS: PRAVASTATIN 20 MG TAB PO SCH (21:38)
[2020-01-08] MEDS: ASPIRIN 81 MG ENTERIC TAB PO SCH (21:38)
[2020-01-08] MEDS: POTASSIUM CHLORIDE 10 MEQ SR TABLET PO SCH (21:38)
[2020-01-09] VITALS (15 sets, daily range): BP systolic 129–142; BP diastolic 66–76; O2SAT 86–95
[2020-01-09] MEDS: RAMELTEON 8 MG TAB (ROZEREM) PO SCH ×2 (00:10→20:34)
[2020-01-09] MEDS: FUROSEMIDE 40MG/4ML VIAL (J1940) IV SCH ×5 (00:11→23:31)
--- NOTE | 2020-01-09 00:59 | REP ---
ULTRASOUND RIGHT CHEST: Real-time sonographic evaluation of right chest performed to evaluate for pleural fluid for a possible thoracentesis. Only very minimal amount of right pleural fluid is identified sonographically. Scheduled thoracentesis is cancelled, as there is insufficient fluid for safe aspiration. Electronically Signed by Oswald Gardiner MD 01/09/2020 11:32 P
[2020-01-09] MEDS: IPRATROPIUM 0.5MG/ALBUTEROL 2.5MG INH SOL UD 3ML (DUONEB) NEB SCH ×5 (03:36→20:22)
[2020-01-09] MEDS: SLF 3 ML SYR IV SCH ×3 (05:52→20:34)
[2020-01-09 06:14] LABS: BASO # 0.1 10^3/uL (0.0-0.2); EOS # 0.1 10^3/uL (0.0-0.5); EOS % 0.9 % (0.0-3.0); HEMATOCRIT 50.7 % (42.0-52.0); HEMOGLOBIN 15.4 g/dl (13.5-17.5); LYMPH % 11.6 % (24.0-44.0); MEAN CORPUSCULAR HEMOGLOBIN 28.6 pg (27.0-33.0); MEAN CORPUSCULAR HGB CONC 30.4 g/dl (32.0-36.5); MEAN CORPUSCULAR VOLUME 94.1 fl (80.0-96.0); MONO # 0.7 10^3/uL (0.0-0.8); MONO % 8.4 % (0.0-5.0); NEUTROPHILS # 6.9 10^3/uL (1.5-8.5); NEUTROPHILS % 77.9 % (36.0-66.0); PLATELET COUNT, AUTOMATED 213 10^3/uL (150-450); RED BLOOD COUNT 5.39 10^6/uL (4.30-6.10); WHITE BLOOD COUNT 8.8 10^3/uL (4.0-10.0)
[2020-01-09 06:32] LABS: BLOOD UREA NITROGEN 21 MG/DL (7-18); CALCIUM LEVEL 9.3 MG/DL (8.8-10.2); CARBON DIOXIDE LEVEL 37 MEQ/L (21-32); CHLORIDE LEVEL 98 MEQ/L (98-107); CREATININE FOR GFR 0.85 MG/DL (0.70-1.30); GLOMERULAR FILTRATION RATE > 60.0 (>42); GLUCOSE, FASTING 92 MG/DL (70-100); POTASSIUM SERUM 3.6 MEQ/L (3.5-5.1); SODIUM LEVEL 139 MEQ/L (136-145)
[2020-01-09] MEDS: TIOTROPIUM INHALER/CAPSULE (SPIRIVA) INH SCH (07:29)
[2020-01-09] MEDS: PARoxetine 20 MG TAB PO SCH (08:17)
[2020-01-09] MEDS: ENOXAPARIN 40MG/0.4ML SYRINGE (J1650 PER 10MG) SC SCH (08:17)
[2020-01-09] MEDS: VITAMIN D 1,000 INTERNATIONAL UNITS TABLET PO SCH ×2 (08:17→20:34)
[2020-01-09] MEDS: atenoloL 50 MG TAB PO SCH ×2 (09:00→20:34)
--- NOTE | 2020-01-09 15:27 | IPNPDOC ---
Text Note Date of Service The patient was seen on 01/09/20. NOTE Mr. Grande was seen this AM and stated that his condition is close to basel ine. He feels much less fluid overloaded than he was on admission. He states that his extremities are less swollen and that the blister on his legs are no longer secreting fluids. He states that he has been unable to fall asleep at night and instead sleeps throughout the night. He desires to go home and states that he has hesitated to see a sleep specialist in the past about his suspected AAMIR. He denies any headaches, chest pain, SOB, abdominal pain. Physical Exam: Vitals: See Below General: Obese male sitting up in a chair in no apparent distress HEENT: Normal sclera. EOMI. No JVD. Normal sclera CV: RRR with muffled heart sounds. No murmurs, rubs, gallops Respiratory: Mild wheezing noted throughout his lung azar. No signs of fluid overload Abdomen: Soft and nontender. Nondistended. Extremities: 1+ pitting edema in legs B/L. Dusky, erythematous patches on anterior shins with multiple excoriations in different healing states on LE B/L. Assessment and Plan: Mr. Grande is a 69 year old man who was admitted for 3 weeks of progressively worse SOB, LE edema, dyspnea of exertion, and a 18 pound weight gain 2/2 exacerbation of his HFwPEF. He is currently being diuresed with great effect on his presentation having currently lost 37 pounds of water weight. He has been hypoxic while sleeping and requires 5-6L of O2 while awake to maintain PaO2 >95% at rest. #Hfpef exacerbation: -Continue Lasix 40mg IV Q6H -Monitor for signs of decreased perfusion as patient is being diuresed. -Patient still has trace pitting edema in LE up to his calves #Acute Hypoxic Hypercapnic Respiratory Failure: -Likely multifactorial to include his COPD, CHF, suspected AAMIR/Obesity hypove ntilation syndrome, deconditioning -Desaturation to the low 80% while sleeping and requires 5-6L of O2 -Will likely need to discharge with home oxygen therapy -Should F/U outpatient with pulmonary to better manage his COPD and actually give him PFTs to diagnose and stage his disease -Continue Spiriva and Albuterol inhaler treatment -Patient encouraged to use incentive spirometry -Oral steroid regimen started -Nocturnal Oxygenation study ordered and pending -Will likely recommend F/U with sleep specialist for AAMIR diagnosis outpatient -Patient also has moderate pulmonary hypertension which is contributing to the patient's SOB -Diagnostic thoracocentesis ordered and pending for today with cytology studies of pleural fluid ordered - Dr. Mejia, pulmonology, consulted. Appreciate his recommendations. #HTN: -Continue Atenolol 50 mg QAM PO -Continue Diltiazem HCl 240 mg QD PO #DVT Prophylaxis -Continue Lovenox GME ATTESTATION I have personally evaluated and examined the patient. Discussed with resident/student regarding plan of care and agree with the above assessment and plan. VS,Fishbone, I+O VS, Fishbone, I+O Laboratory Tests 01/09/20 05:34 Vital Signs Date Time Temp Pulse Resp B/P (MAP) Pulse Ox O2 Delivery O2 Flow Rate FiO2 01/09/20 12:00 97.3 61 18 142/74 (96) 94 Nasal Cannula 5.0 I&O- Last 24 Hours up to 6 AM 01/09/20 06:00 Intake Total 840 ml Output Total 3400 ml Balance -2560 ml LUCHO ELAM OMS-3 Jan 09, 2020 15:27 KRYSTA ALEXANDRE D.O. Jan 09, 2020 16:49 GALE GRACE MD Jan 09, 2020 18:29
[2020-01-09] MEDS: predniSONE 20 MG TAB PO SCH (16:22)
[2020-01-09] MEDS: PRAVASTATIN 20 MG TAB PO SCH (20:33)
[2020-01-09] MEDS: ASPIRIN 81 MG ENTERIC TAB PO SCH (20:34)
[2020-01-09] MEDS: POTASSIUM CHLORIDE 10 MEQ SR TABLET PO SCH (20:34)
[2020-01-10] VITALS (14 sets, daily range): BP systolic 119–154; BP diastolic 63–75; O2SAT 86–94
[2020-01-10] MEDS: IPRATROPIUM 0.5MG/ALBUTEROL 2.5MG INH SOL UD 3ML (DUONEB) NEB SCH ×8 (00:16→23:38)
[2020-01-10 05:39] LABS: BASO # 0.1 10^3/uL (0.0-0.2); BASO % 0.8 % (0.0-1.0); HEMOGLOBIN 16.1 g/dl (13.5-17.5); LYMPH # 0.7 10^3/uL (1.5-5.0); LYMPH % 9.5 % (24.0-44.0); MEAN CORPUSCULAR HEMOGLOBIN 28.4 pg (27.0-33.0); MEAN CORPUSCULAR VOLUME 91.7 fl (80.0-96.0); MONO # 0.4 10^3/uL (0.0-0.8); MONO % 5.5 % (0.0-5.0); NEUTROPHILS # 6.5 10^3/uL (1.5-8.5); NEUTROPHILS % 83.9 % (36.0-66.0); PLATELET COUNT, AUTOMATED 214 10^3/uL (150-450); RED BLOOD COUNT 5.67 10^6/uL (4.30-6.10); WHITE BLOOD COUNT 7.7 10^3/uL (4.0-10.0)
[2020-01-10 05:59] LABS: BLOOD UREA NITROGEN 20 MG/DL (7-18); CALCIUM LEVEL 9.3 MG/DL (8.8-10.2); CARBON DIOXIDE LEVEL 36 MEQ/L (21-32); CHLORIDE LEVEL 97 MEQ/L (98-107); CREATININE FOR GFR 0.78 MG/DL (0.70-1.30); GLOMERULAR FILTRATION RATE > 60.0 (>42); GLUCOSE, FASTING 102 MG/DL (70-100); POTASSIUM SERUM 3.5 MEQ/L (3.5-5.1); SODIUM LEVEL 138 MEQ/L (136-145)
[2020-01-10] MEDS: FUROSEMIDE 40MG/4ML VIAL (J1940) IV SCH ×2 (06:15→12:13)
[2020-01-10] MEDS: SLF 3 ML SYR IV SCH ×3 (06:15→20:37)
[2020-01-10] MEDS: TIOTROPIUM INHALER/CAPSULE (SPIRIVA) INH SCH (07:22)
[2020-01-10] MEDS: PARoxetine 20 MG TAB PO SCH (08:45)
[2020-01-10] MEDS: predniSONE 20 MG TAB PO SCH (08:46)
[2020-01-10] MEDS: VITAMIN D 1,000 INTERNATIONAL UNITS TABLET PO SCH ×2 (08:46→20:34)
[2020-01-10] MEDS: ENOXAPARIN 40MG/0.4ML SYRINGE (J1650 PER 10MG) SC SCH (08:46)
[2020-01-10] MEDS: atenoloL 50 MG TAB PO SCH ×2 (08:47→20:36)
--- NOTE | 2020-01-10 17:09 | IPNPDOC ---
Text Note Date of Service The patient was seen on 01/10/20. NOTE Mr. Grande was seen this AM and reports continued fluid loss in response to this lasix treatments. He states he is feeling close to his baseline and wants to go home. When I explained that we would like to have pulmonology onboard to help manage and plan further evaluation of his hypoxia he was amenable to that but still strongly desires to go home. Otherwise he is eating well and having bowel movements and urinating without incident. He denies any new onset SOB, chest pains, abdominal pains, heart palpitations. Physical Exam: Vitals: See Below General: Obese male sitting up in a chair in no apparent distress HEENT: Normal sclera. EOMI. No JVD. Normal sclera CV: RRR with muffled heart sounds. No murmurs, rubs, gallops Respiratory: Mild expiratory wheezing noted throughout his lung azar. No signs of fluid overload Abdomen: Soft and nontender. Nondistended. Extremities: 1+ pitting edema in legs B/L. Dusky, erythematous patches on anterior shins with multiple excoriations in different healing states on LE B/L. A hyperkeratotic papule 1-2 cm in diameter noted on R martinez. Assessment and Plan: Mr. Grande is a 69 year old man who was admitted for 3 weeks of progressively worse SOB, LE edema, dyspnea of exertion, and a 18 pound weight gain 2/2 exacerbation of his HFwPEF. He is currently being diuresed with great effect on his presentation having currently lost 37 pounds of water weight. He has been hypoxic while sleeping and requires 4-5L of O2 while awake to maintain PaO2 in the 90s% at rest. #Hfpef exacerbation: -Beginning to wean Lasix to 40mg IV Q12H -Monitor for signs of decreased perfusion as patient is being diuresed. -Patient still has trace pitting edema in LE up to his calves #Acute Hypoxic Hypercapnic Respiratory Failure: -Likely multifactorial to include his COPD, CHF, suspected AAMIR/Obesity hypoventilation syndrome, deconditioning, Right heart failure -Desaturation to the low 80% while sleeping and requires 4-5L of O2 to maintain SaO2 in 90's while awake -Will likely need to discharge with home oxygen therapy -Should F/U outpatient with pulmonary to better manage his COPD and actually give him PFTs to diagnose and stage his disease -Continue Spiriva and Albuterol inhaler treatment -Patient encouraged to use incentive spirometry -Continue Prednisone 40 mg PO (day 2) -Nocturnal Oxygenation study ordered and pending -Will likely recommend F/U with sleep specialist for AAMIR diagnosis outpatient -Diagnostic thoracocentesis ordered and pending for today with cytology studies of pleural fluid ordered -Dr. Mejia, pulmonology, consulted. Appreciate his recommendations. #HTN: -Continue Atenolol 50 mg QAM PO -Continue Diltiazem HCl 240 mg QD PO #DVT Prophylaxis -Continue Lovenox VS,Fishbone, I+O VS, Fishbone, I+O Laboratory Tests 01/10/20 05:23 Vital Signs Date Time Temp Pulse Resp B/P (MAP) Pulse Ox O2 Delivery O2 Flow Rate FiO2 01/10/20 16:00 97.7 62 16 143/73 (96) 89 Nasal Cannula 4.0 I&O- Last 24 Hours up to 6 AM 01/10/20 06:00 Intake Total 600 ml Output Total 5625 ml Balance -5025 ml GME ATTESTATION GME ATTESTATION My faculty preceptor for this patient encounter was physically present during the encounter and was fully available. All aspects of the patient interview, examination, medical decision making process, and medical care plan development were reviewed and approved by the faculty preceptor. The faculty preceptor is aware and concurs with the plan as stated in the body of this note and will attest to such by his/her cosignature. ATTENDING NOTE I have personally evaluated and examined the patient. Discussed with resident/student regarding plan of care and agree with the above assessment and plan. LUCHO ELAM OMS-3 Jan 10, 2020 17:08 GALE GRACE MD Jan 10, 2020 18:21
[2020-01-10] MEDS: RAMELTEON 8 MG TAB (ROZEREM) PO SCH (20:34)
[2020-01-10] MEDS: ASPIRIN 81 MG ENTERIC TAB PO SCH (20:34)
[2020-01-10] MEDS: POTASSIUM CHLORIDE 10 MEQ SR TABLET PO SCH (20:34)
[2020-01-10] MEDS: PRAVASTATIN 20 MG TAB PO SCH (20:35)
[2020-01-11] VITALS (9 sets, daily range): BP systolic 134–144; BP diastolic 67–88; O2SAT 91–95
[2020-01-11] MEDS: IPRATROPIUM 0.5MG/ALBUTEROL 2.5MG INH SOL UD 3ML (DUONEB) NEB SCH ×3 (04:09→11:11)
[2020-01-11] MEDS: SLF 3 ML SYR IV SCH (04:58)
[2020-01-11 05:51] LABS: HEMATOCRIT 53.1 % (42.0-52.0); HEMOGLOBIN 16.2 g/dl (13.5-17.5); MEAN CORPUSCULAR HEMOGLOBIN 28.2 pg (27.0-33.0); MEAN CORPUSCULAR HGB CONC 30.5 g/dl (32.0-36.5); MEAN CORPUSCULAR VOLUME 92.5 fl (80.0-96.0); PLATELET COUNT, AUTOMATED 222 10^3/uL (150-450); RED BLOOD COUNT 5.74 10^6/uL (4.30-6.10); WHITE BLOOD COUNT 8.3 10^3/uL (4.0-10.0)
[2020-01-11 06:05] LABS: BLOOD UREA NITROGEN 23 MG/DL (7-18); CALCIUM LEVEL 9.4 MG/DL (8.8-10.2); CARBON DIOXIDE LEVEL 38 MEQ/L (21-32); CHLORIDE LEVEL 98 MEQ/L (98-107); CREATININE FOR GFR 0.78 MG/DL (0.70-1.30); GLOMERULAR FILTRATION RATE > 60.0 (>42); GLUCOSE, FASTING 86 MG/DL (70-100); POTASSIUM SERUM 3.6 MEQ/L (3.5-5.1); SODIUM LEVEL 138 MEQ/L (136-145)
[2020-01-11] MEDS: TIOTROPIUM INHALER/CAPSULE (SPIRIVA) INH SCH (07:14)
[2020-01-11] MEDS: ENOXAPARIN 40MG/0.4ML SYRINGE (J1650 PER 10MG) SC SCH (08:34)
[2020-01-11] MEDS: PARoxetine 20 MG TAB PO SCH (08:35)
[2020-01-11] MEDS: VITAMIN D 1,000 INTERNATIONAL UNITS TABLET PO SCH (08:35)
[2020-01-11] MEDS: predniSONE 20 MG TAB PO SCH (08:35)
[2020-01-11] MEDS: atenoloL 50 MG TAB PO SCH (08:36)
[2020-01-11] MEDS ORDERED: FUROSEMIDE 40MG/4ML VIAL (J1940) IV SCH (09:00)
[2020-01-11] MEDS ORDERED: TORS20TA2 PO (10:41)
--- NOTE | 2020-01-11 12:27 | DS.PDOC ---
Discharge Summary General Date of Admission Jan 03, 2020 at 14:01 Date of Discharge 01/11/2020 Discharge Summary PROCEDURES PERFORMED DURING STAY: [None]. ADMITTING DIAGNOSES: 1. Acute on chronic congestive heart failure (CHF) exacerbation with preserved systolic ejection fraction 2. HTN 3. T2DM 4. Depression 5. Dyslipidemia 6. COPD DISCHARGE DIAGNOSES: 1. HF with preserved ejection fraction exacerbation - resolved 2. Acute hypoxic hypercapnic respiratory failure - 3. HTN 4. T2DM 5. Depression 6. HLD 7. COPD COMPLICATIONS/CHIEF COMPLAINT: Chf Exacerbation. HISTORY OF PRESENT ILLNESS: Mr. Grande is a 69-year-old male with history significant for obesity, diabetes, chronic obstructive pulmonary disease (COPD), congestive heart failure, diastolic dysfunction, restless legs, nonalcoholic steatohepatitis, hypertension, anxiety, vitamin D deficiency, Crohn disease, bowel obstruction, pacemaker placement due to bradycardia, active tobacco use, and hyperlipidemia with bowel resection due to bowel obstruction, laceration of the distal left little finger, and laceration of the tip of the left index finger. He was in his usual state of health until about 3 weeks ago, when he noticed increasing shortness of breath, lower extremity edema, difficulty walking with dyspnea on exertion, and 18-pound weight gain. Patient said that the "fluid buildup got so bad that blisters started weeping in his legs." He also said that he has had increasing abdominal distention. He had felt that he was having difficulty lying flat and had been sleeping on his recliner. He admitted to fluid and dietary indiscretion. He was not adhering to a fluid restriction diet and admitted to "eating crap." He stated that his typical meals were usually things that he picks up from [employer], such as sliders, mccurdy and egg croissant sandwiches, or ham sandwiches. He stated that he did not cook at home or eat at restaurants, usually just picks up things everywhere. He otherwise denied any chest pain, pressure or tightness, lightheadedness, or dizziness. He denied any palpitations. He had no prior episode of hospital admission for heart failure. He never had coronary artery disease (CAD) or myocardial infarction ([place]) in the past. He denied any history of atrial fibrillation, atrial flutter, multifocal atrial tachycardia (MAT). He had never been evaluated by pulmonary function testing for COPD but was diagnosed with COPD by his primary care physician. He denied ever being sent for a sleep study for obstructive sleep apnea and says that he is not sure if he snores at night, as he lives by himself. He then otherwise denied any fever or chills, changes in vision, rhinorrhea, diplopia, blurred vision, sore throat, tinnitus, vertigo. He denied any dysuria, urgency, frequency, fever, chills, flank pain. He denied no nausea, vomiting, diarrhea. No abdominal pain or denied any paresthesias. All other systems negative. In the emergency room (ER), he was found to be significantly fluid overloaded with rales and 3+ pitting edema to the sacrum. Chest x-ray shows bibasilar edema and small right pleural effusion. Hospitalist was called to admit for congestive heart failure. He was found to be hypoxic, 81% on room air. HOSPITAL COURSE: Following admission Mr. Grande was diuresed and responded well by losing over 40 pounds of water weight. While he was being diuresed it was noticed that his oxygen saturations were dropping into the low 80s while sleeping and moving which prompted us to place him on 4-6L of oxygen supplementation at all times. A nocturnal oxygenation study was performed and interpreted by pulmonology and showed multiple hypoxic events throughout the study. His home medications for COPD were continued and in addition he received 1 time IV steroids and oral steroids to try to alleviate some of his hypoxic respiratory failure, which was thought to be possibly related to his COPD. He was going to have a diagnostic thoracocentesis to rule out malignant effusions however there was not enough effusion volume after being diuresed so thoroughly. During his stay he received home medications for depression, HTN as well. DISCHARGE MEDICATIONS: Please see below. ALLERGIES: Please see below. PHYSICAL EXAMINATION ON DISCHARGE: VITAL SIGNS: Please see below. General: Obese male sleeping in a chair in no apparent distress HEENT: Normal sclera. EOMI. No JVD. Normal sclera CV: RRR with distant heart sounds. No murmurs, rubs, gallops Respiratory: Mild expiratory wheezing noted throughout his lung azar. No signs of fluid overload Abdomen: Soft and nontender. Nondistended. Extremities: 1+ pitting edema in legs B/L. Dusky, erythematous patches on anterior shins with multiple excoriations in different healing states on LE B/L. A hyperkeratotic papule 1-2 cm in diameter noted on R martinez. LABORATORY DATA: Please see below. IMAGING: CXR 01/03/20: Moderate cardiomegaly with small right effusion. Possible mild bibasilar interstitial infiltrate/edema. Chest CT 01/05/20: Adenopathy as described above. Right pleural effusion. Patchy lung field opacities as described above suggestive of subsegmental atelectatic change/possible pneumonia. I cannot rule out the possibility of a malignant effusion Free fluid in the abdomen, etiology uncertain. Celiac axis adenopathy and ventral hernia unchanged. CXR 01/07/20: Multi lead pacer unchanged with cardiomegaly, and some improvement in the vascular redistribution. The same or slight improvement in the bibasilar areas of patchy infiltrate or atelectasis since the prior chest x-ray 01/03/2020 Echocardiogram 01/08/20: Only very minimal amount of right pleural fluid is identified sonographically. PROGNOSIS: Fair ACTIVITY: [As tolerated]. DIET: As tolerated DISCHARGE PLAN: DISCHARGE INSTRUCTIONS: 1. Please take diuretic as prescribed 2. Please use Oxygen therapy as prescribed 3. Please Follow up with Client Advisor in 1-2 weeks 4. Please Follow up with Supervisor Parking Lot in 1-2 weeks 5. Please follow up with dermatology, Dr. Ramirez, appointment scheduled for 11:30 A.M. on Wednesday01/15/2020 DISCHARGE CONDITION: [Stable]. TIME SPENT ON DISCHARGE: 40 minutes. I have personally evaluated and examined the patient. Discussed with resident/student regarding plan of care and agree with the above assessment and plan. Vital Signs/I&Os Vital Signs Date Time Temp Pulse Resp B/P (MAP) Pulse Ox O2 Delivery O2 Flow Rate FiO2 01/11/20 09:00 5.0 01/11/20 08:36 59 136/79 01/11/20 08:00 96.9 17 93 Nasal Cannula I&O- Last 24 Hours up to 6 AM 01/11/20 06:00 Intake Total 1500 ml Output Total 2875 ml Balance -1375 ml Laboratory Data Labs 24H Laboratory Tests 2 01/11/20 05:17: Nucleated Red Blood Cells % (auto) 0.0, Anion Gap 2L, Glomerular Filtration Rate > 60.0, Calcium Level 9.4 CBC/BMP Laboratory Tests 01/11/20 05:17 Discharge Medications Scheduled Amlodipine Besylate/Valsartan (Exforge 10-320 mg Tablet) 1 Tab Tab, 1 TAB PO DAILY, (Reported) Aspirin (Aspirin EC) 81 Mg Tab, 81 MG PO QHS, (Reported) Atenolol (Atenolol) 50 Mg Tab, 50 MG PO QAM, (Reported) Atenolol (Atenolol) 100 Mg Tab, 100 MG PO QHS, (Reported) Cholecalciferol (Vitamin D3) (Vitamin D3) 1,000 Unit Tablet, 1,000 UNITS PO BID, (Reported) Diltiazem HCl (Cartia Xt) 240 Mg Cap, 240 MG PO DAILY, (Reported) Fenofibric Acid (Choline) (Fenofibric Acid) 135 Mg Capsule.dr, 135 MG PO DAILY, (Reported) Hydrochlorothiazide (Hydrochlorothiazide) 50 Mg Tab, 50 MG PO DAILY, (Reported) Metformin HCl (Metformin HCl) 500 Mg Tablet, 500 MG PO BID, (Reported) Paroxetine HCl (Paroxetine) 20 Mg Tab, 20 MG PO DAILY, (Reported) Potassium Chloride (Potassium Chloride) 10 Meq Tab.er.prt, 10 MEQ PO QHS, (Reported) Pravastatin Sodium (Pravastatin Sodium) 80 Mg Tab, 80 MG PO QHS, (Reported) Tiotropium [place] (Spiriva) 18 Mcg Cap, 1 INHALATION INH DAILY, (Reported) Torsemide (Torsemide) 20 Mg Tablet, 20 MG PO DAILY Allergies Coded Allergies: ropinirole (Verified Adverse Reaction, Mild, FEET/ANKLE SWELLNIG, WEAKNESS, FATIGUE, 01/03/20) GME ATTESTATION GME ATTESTATION My faculty preceptor for this patient encounter was physically present during the encounter and was fully available. All aspects of the patient interview, examination, medical decision making process, and medical care plan development were reviewed and approved by the faculty preceptor. The faculty preceptor is aware and concurs with the plan as stated in the body of this note and will attest to such by his/her cosignature. LUCHO ELAM OMS-3 Jan 11, 2020 12:27 GALE GRACE MD Jan 11, 2020 18:22
--- NOTE | 2020-01-12 14:55 | NOCOX ---
DATE OF PROCEDURE: 01/09/2020 The patient was initially on room air, however was 78% at the start of the study. He was then placed on a nasal cannula oxygen supplementation initially at 2 liters a minute and later increased to 3 liters a minute. Total valid sampling time was approximately 7 hours. The patient's oxygen saturation ranged from a high of 100% to the lowest of 77%. His heart rate range was 117 to a low of 29, which is likely artifactual error. The total time spent with an oxygen saturation less than 88% was approximately 39 minutes. Graphically the patient was noted to have episodes of periodic and repetitive desaturations overnight. There was also some heart rate variability noted overnight. IMPRESSION: Abnormal nocturnal oximetry study. The patient qualifies for nasal cannula oxygen supplementation nocturnally. However, based on his SpO2 waveform tracing there is suspicion of obstructive sleep apnea. Would refer patient for more formal in lab sleep testing.
== END 2020-01-11 15:08 | disposition home health service (06) | DRG 291 ==
LOC: M ED 12:14 → M ED INP 14:01 → ENRESERV 14:09 → M PCU 14:34
PROVIDERS: ADMIT General Practice; ATTEND Student in an Organized Health Care Education/Training Program
DX: I11.0 Hypertensive heart disease with heart failure (principal); J96.01 Acute respiratory failure with hypoxia; J96.02 Acute respiratory failure with hypercapnia; K50.90 Crohn's disease, unspecified, without complications; Z68.42 Body mass index [BMI] 45.0-49.9, adult; E66.2 Morbid (severe) obesity with alveolar hypoventilation; I50.33 Acute on chronic diastolic (congestive) heart failure; J44.9 Chronic obstructive pulmonary disease, unspecified; E11.9 Type 2 diabetes mellitus without complications; G25.81 Restless legs syndrome; K75.81 Nonalcoholic steatohepatitis (NASH); F41.9 Anxiety disorder, unspecified; I87.2 Venous insufficiency (chronic) (peripheral); E55.9 Vitamin D deficiency, unspecified; Z95.0 Presence of cardiac pacemaker; F17.210 Nicotine dependence, cigarettes, uncomplicated; E78.5 Hyperlipidemia, unspecified; Z90.49 Acquired absence of other specified parts of digestive tract; I27.20 Pulmonary hypertension, unspecified; F32.9 Major depressive disorder, single episode, unspecified; N52.9 Male erectile dysfunction, unspecified; Z89.022 Acquired absence of left finger(s); Z79.84 Long term (current) use of oral hypoglycemic drugs; Z79.899 Other long term (current) drug therapy; Z88.8 Allergy status to other drugs, medicaments and biological substances; Z53.09 Procedure and treatment not carried out because of other contraindication

== ENCOUNTER → 2020-09-06 | Outpatient (CLI) | payer MEDICARE ==
[~2020-09-06] MED LIST changes: +ASPI325T3 PO; +D31000TA2 PO; +FARX1TAB3 PO; +FENO135C6 PO; +METF-839 PO; +MM S100C PO; +POTA10TA16 PO; +TORS20TA2 PO
== END ==
LOC: M LABSMTC 09:52
PROVIDERS: ATTEND Anesthesiology
DX: Z01.812 Encounter for preprocedural laboratory examination (principal); Z20.822 Contact with and (suspected) exposure to COVID-19

== ENCOUNTER 2020-09-11 06:54 | Day surgery (SDC) | payer MEDICARE ==
[~2020-09-11] VITALS: Ht 175.3 cm; Wt 114.8 kg
[~2020-09-11 06:54] MED LIST changes: +LIDOCAINE 1% MDV 20ML VIAL SQ PRN; +LR 1,000 ML IV ONE; +ceFAZolin SOD 2 GM in IV 1 EA IV ONE
[2020-09-11] MEDS ORDERED: BUPIVACAINE/EPIN 0.25% 30 ML VIAL As Ordered ONE (07:12)
[2020-09-11] MEDS ORDERED: propofoL 200 MG/20 ML VIAL As Ordered ONE (07:42)
[2020-09-11] MEDS ORDERED: MIDAZOLAM INJ 2MG/2ML VIAL (J2250 PER 1MG) As Ordered ONE (07:42)
[2020-09-11] MEDS ORDERED: LIDOCAINE 2% 100MG/5ML SDV (FOR ANES.) As Ordered ONE (07:42)
[2020-09-11] MEDS ORDERED: fentaNYL 100 MCG/2 ML INJECTION (J3010) As Ordered ONE (07:43)
[2020-09-11] MEDS ORDERED: ALBUTEROL SULFATE 2.5 MG/0.5 ML INH NEB SOLN INH ONE (08:10)
--- NOTE | 2020-09-11 08:18 | ROOPDOC ---
[facility] Report Of Operation Report of Operation DATE OF PROCEDURE: 09/11/20 PREPROCEDURE DIAGNOSES: Right carpal tunnel syndrome. POSTPROCEDURE DIAGNOSES: Right carpal tunnel syndrome. PROCEDURE: Right open carpal tunnel release. SURGEON: Dr. Matty Colvin MD NATIONAL RECRUITER: ANESTHESIA: Local/ mac Dr. Burnette. ESTIMATED BLOOD LOSS: Approximately 10 mL. COMPLICATIONS: None. REMARKS: None. PROCEDURE NOTE: 69-year-old man presented with signs and symptoms consistent wit h carpal tunnel syndrome. He wished to go ahead with right open carpal tunnel release. I marked the right upper extremity. He had no further questions. I reiterated the surgical risks and benefits. DESCRIPTION OF PROCEDURE: Patient was brought to the operating theater. They were placed supine on the operating room table. Hand table was used. Limb was prepped and draped in the usual sterile fashion. I used chlorhexidine-based prep solution allowing over 3 minutes drying time prior to draping. 2 g of IV Ancef was given prior to starting the case. Local/MAC anesthesia was used. Preoperative timeout was performed confirming the site the patient and the surgery. I began by infiltrating 6 mL of percent Marcaine with epinephrine in and around the proposed incision site. This was on the palmar surface just distal to the wrist crease longitudinally in line with the fourth digit. The incision length was approximately 2 cm. I allowed the local anesthetic time to work. I carried the dissection down through skin and subcutaneous tissue to meticulous hemostasis. I incised the palmar fascia in line with the skin incision. I incised the transverse carpal ligament in line with the skin incision fully proximally and distally. Nerve appeared in continuity throughout the case. I thoroughly irrigated the wound with normal saline. I closed the subcutaneous tissues with 2-0 Vicryl sutures and the skin with 3-0 Ethilon in a horizontal mattress fashion. Wound cleaned with wet and dry dressing followed by application of non stick dressing, 4 x 8 gauze and overwrapped with Candace type dressing. Patient was woken up from their sedation and transferred off the operating room table and taken to postanesthetic care unit in stable condition. All sponge, needle, instrument counts were correct. No complications. The patient is to start immediate hand wrist and elbow exercises but avoid heavy lifting and gripping-type activities for the first 6 weeks. They will be discharged home according to day surgery criteria. They can change the dressing postoperative day 1 and avoid showering over top or getting it wet for the first 14 days. Follow-up in the office in 2 weeks' time. Postoperative wound instructions were given. It was recommended to keep the wound clean and dry. Dressing changes as needed. It was reinforced with the patient that they should call us or be seen immediately for redness, drainage, or fever. MATTY COLVIN MD Sep 11, 2020 08:18
[2020-09-11 09:25] VITALS: BP 128/67
[2020-09-11] MEDS ORDERED: oxyCODONE 5MG TAB PO PRN (09:30)
[2020-09-11] MEDS ORDERED: MORPHINE 2 MG/ML 1ML VIAL (J2270) IV PRN (09:35)
[2020-09-11] MEDS ORDERED: LR 1,000 ML IV SCH (09:35)
[2020-09-11] MEDS ORDERED: ACETAMINOPHEN TAB 650MG DOSE (2X325MG) PO PRN (09:35)
[2020-09-11] MEDS ORDERED: ONDANSETRON 4MG/2ML VIAL IV PRN (09:35)
[2020-09-11] MEDS ORDERED: PERCOCET 5MG/325MG TAB PO PRN (09:35)
--- NOTE | 2020-09-11 22:02 | ECGEPIP ---
[facility] Test Date: 2020-09-11 Pat Name: DONTAE STACK Department: Room: - Gender: Male [employer] Re[employer] Operator: constantino : 1950 Requested By: RAMAN RUEDA Order Number: [id number] Reading MD: Parviz López Measurements Intervals [place] Rate: 58 P: -30 [place]: 254 QRS: -85 QRSD: 190 T: -70 QT: 458 QTc: 449 Interpretive Statements Atrial-paced rhythm with prolonged AV conduction with frequent AV dual-paced complexes Left axis deviation Right bundle branch block Marked T wave abnormality, consider inferior wall ischemia Less AV sequential pacing compared with 01/03/2020. Electronically Signed on 09-11-2020 22:02:15 EDT by Parviz López
== END 2020-09-11 09:30 | disposition home or self-care (01) ==
LOC: M SDC 06:54
PROVIDERS: ATTEND Orthopaedic Surgery Sports Medicine
DX: G56.01 Carpal tunnel syndrome, right upper limb (principal); I10 Essential (primary) hypertension; E78.5 Hyperlipidemia, unspecified; I50.9 Heart failure, unspecified; J44.9 Chronic obstructive pulmonary disease, unspecified; E11.9 Type 2 diabetes mellitus without complications; K50.90 Crohn's disease, unspecified, without complications; F41.9 Anxiety disorder, unspecified; F32.9 Major depressive disorder, single episode, unspecified; F17.218 Nicotine dependence, cigarettes, with other nicotine-induced disorders; Z79.82 Long term (current) use of aspirin; Z79.84 Long term (current) use of oral hypoglycemic drugs; Z79.899 Other long term (current) drug therapy
CPT/HCPCS: 64721; 93005; J0690; J2250; J3010

== ENCOUNTER → 2020-11-21 | Outpatient (CLI) | payer MEDICARE ==
[~2020-11-21] MED LIST changes: -LIDOCAINE 1% MDV 20ML VIAL SQ PRN; -LR 1,000 ML IV ONE; -ceFAZolin SOD 2 GM in IV 1 EA IV ONE
--- NOTE | 2020-11-21 11:56 | REP ---
INDICATION: HISTORY CARPAL TUNNEL. COMPARISON: None. TECHNIQUE: AP, lateral views of the right elbow. FINDINGS: Age-related degenerative changes include subtle spurring at the coronoid process along with elements of periarticular sclerosis throughout the joint. No acute fracture or dislocation. No obvious loose bodies. No evidence for effusion. IMPRESSION: Age-related degenerative changes. <Electronically signed by Luis Antonio Dominguez > 11/21/20 [id number]
--- NOTE | 2020-11-21 11:57 | REP ---
INDICATION: HISTORY CARPAL TUNNEL. COMPARISON: None. TECHNIQUE: AP and lateral views of the right wrist FINDINGS: Generalized age-related changes include carias carpal sclerosis and mild joint space narrowing. No obvious osteophytosis or periarticular calcifications/loose bodies identified. No evidence for acute fracture. IMPRESSION: Generalized age-related degenerative changes. <Electronically signed by Luis Antonio Dominguez > 11/21/20 [id number]
--- NOTE | 2020-11-21 11:58 | REP ---
INDICATION: HISTORY CARPAL TUNNEL. COMPARISON: None. TECHNIQUE: AP and lateral views of the right forearm. FINDINGS: No acute fracture or dislocation. Age-related degenerative changes at the elbow and wrist. IMPRESSION: Generalized age-related changes. <Electronically signed by Luis Antonio Dominguez > 11/21/20 [id number]
== END ==
LOC: M SOG 11:27
PROVIDERS: ATTEND Orthopaedic Surgery Sports Medicine
DX: G56.01 Carpal tunnel syndrome, right upper limb (principal)

== ENCOUNTER → 2021-01-10 | Outpatient (CLI) | payer MEDICARE | LOC: M LABSMTC 10:06 | PROVIDERS: ATTEND Anesthesiology | DX: Z01.818 Encounter for other preprocedural examination (principal); Z11.52 Encounter for screening for COVID-19 ==

== ENCOUNTER 2021-01-15 12:28 | Day surgery (SDC) | payer MEDICARE ==
[~2021-01-15] VITALS: Ht 175.3 cm; Wt 113.3 kg
[~2021-01-15 12:28] MED LIST changes: +LR 1,000 ML IV ONE; +ceFAZolin SOD 2 GM in IV 1 EA IV ONE
[2021-01-15] MEDS ORDERED: fentaNYL 100 MCG/2 ML INJECTION (J3010) As Ordered ONE (12:39)
[2021-01-15] MEDS ORDERED: ONDANSETRON 4MG/2ML VIAL As Ordered ONE ×2 (12:39→17:19)
[2021-01-15] MEDS ORDERED: propofoL 200 MG/20 ML VIAL As Ordered ONE ×6 (12:39→17:00)
[2021-01-15] MEDS ORDERED: LIDOCAINE 2% 100MG/5ML SDV (FOR ANES.) As Ordered ONE (12:39)
[2021-01-15] MEDS ORDERED: MIDAZOLAM INJ 2MG/2ML VIAL (J2250 PER 1MG) As Ordered ONE (12:39)
[2021-01-15] MEDS ORDERED: LIDOCAINE 1% SDV 30ML VIAL As Ordered ONE (12:40)
[2021-01-15] MEDS ORDERED: ISOVUE-300 61% 50ML VIAL As Ordered ONE ×2 (14:30→14:57)
[2021-01-15] MEDS ORDERED: PHENYLephrine 500MCG 5ML (100MCG/ML) SYRINGE As Ordered ONE (15:12)
[2021-01-15] MEDS ORDERED: ONDANSETRON 4MG/2ML VIAL IV PRN (17:25)
[2021-01-15] MEDS ORDERED: LR 1,000 ML IV SCH (17:25)
--- NOTE | 2021-01-15 17:34 | REP ---
INDICATION: s/p lead change, pacer battery change. COMPARISON: Comparison portable chest x-ray January 07, 2020. TECHNIQUE: Portable upright AP chest radiograph. FINDINGS: Patient is status post pacemaker lead and power plant replacement. A 3 lead pacemaker is seen in the right heart view of the left side. There is no evidence of pneumothorax or hydrothorax. Moderate cardiac enlargement is observed. Pulmonary vasculature is cephalized. No infiltrate is seen.. IMPRESSION: Pacemaker in place. Moderate cardiac enlargement with pulmonary vascular cephalization. No evidence of pneumothorax.. <Electronically signed by Basim Lozano > 01/15/21 [id number]
--- NOTE | 2021-01-15 17:43 | REP ---
INDICATION: GENERATOR CHANGE, DR REQUESTED. COMPARISON: None. TECHNIQUE: Single-view. 7 minutes 39 seconds of fluoroscopy time is reported. FINDINGS: A single last image hold fluoroscopically obtained spot radiograph of the chest documents pacemaker lead position. IMPRESSION: Procedural imaging. <Electronically signed by Basim Lozano > 01/15/21 [id number]
[2021-01-15 18:10] VITALS: BP 140/80
--- NOTE | 2021-01-15 18:37 | ECGEPIP ---
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 No remarkable changes Electronically Signed on 01-15-2021 18:37:20 EDT by Fidel Chance
--- NOTE | 2021-01-16 09:59 | RO ---
OPERATIVE NOTE DATE OF OPERATION: 01/15/2021 PREOPERATIVE DIAGNOSIS: 1. Pacemaker battery depletion. 2. Ventricular lead malfunction. POSTOPERATIVE DIAGNOSIS: 1. Pacemaker battery depletion. 2. Ventricular lead malfunction. FINDINGS: 1. Pacemaker battery depletion. 2. Ventricular lead malfunction. PROCEDURE PERFORMED: Implant of new ventricular pacemaker lead. Capping of old ventricular pacemaker lead. Left subclavian venogram, dual-chamber pacemaker pulse generator change. SURGEON: Parviz López M.D. STRUCTURAL ENGINEERING DRAFTING OFFICER: None. ANESTHESIA: Lidocaine 1% local/monitored anesthetic care. ESTIMATED BLOOD LOSS: Less than 20 mL. DRAINS: None. BIOPSIES: None. SPECIMENS: Old [employer] dual-chamber pacemaker pulse generator. COMPLICATIONS: None. PROCEDURE DESCRIPTION: Patient was prepped and draped over the left pectoral region. 3M Ioban film was applied. Lidocaine 1% was used for local anesthetic. Prior to starting the operation, the patient's pacemaker was interrogated by the pacemaker rep, James Brown. The pacemaker rep discovered that the ventricular pacemaker lead was malfunctioning prior to the operation. I therefore decided to place a new ventricular pacemaker lead in addition to doing a pacemaker pulse generator change. A left subclavian venogram was performed using Isovue to help localize the left subclavian vein in real time with a micropuncture needle by percutaneous technique. The first two injections were injected by the nurse anesthetic into a vein in the right upper extremity due to his lack of understanding of vein localization under fluoroscopy. The subsequent two Isovue injections were performed via peripheral IV in the left forearm. The guidewire that came with the micropuncture kit with guidewire exchanged for a wire that came with the 8 [place] sheath. Next, I made an incision about 2-1/2 inches in length 1 cm below the guidewire entry site. The guidewire entry site was lateral to the existing pacemaker pulse generator. I then dissected down to the pectoral fascia and then pulled the guidewire through the skin into the incision site. Next, I placed an 8 [place] peel-away sheath and introducer over the guidewire and this was used for vein access for the new ventricular lead. The new ventricular pacemaker lead was placed under fluoroscopic guidance into the vicinity of the right ventricular lead. The apex was secured with a total of 8 turns. This position was found to be electrically and anatomically satisfactory. The new ventricular pacemaker lead was then secured to the pectoral muscle using three individual sutures consisting of 0 Ethibond. Next, the incision was extended in a medial direction over the existing pacemaker scar. It was also dissected down to the pectoral muscle and over top of the anterior capsule overlying the pacemaker pulse generator. The pacemaker pulse generator was then removed from the pocket and the existing terminal pins of the atrial and ventricular pacemaker leads were removed from the pacemaker pulse generator only after loosening the set screws. The ventricular lead was capped with a cap defined for that purpose and secured with an 0 Ethibond suture around the cap. The new ventricular pacemaker lead and the existing atrial pacemaker lead terminal pins were placed into the header of the new pacemaker pulse generator and each one was tightened by securing the set screws with the hex screwdriver. A pull test was applied to each lead to demonstrate that it was secure. I then extended the pacemaker pocket to encompass the existing pacemaker pocket and lateral to it to include the site of the new ventricular pacemaker lead. I then used a medium sized TYRX antimicrobial envelope and cut it into four pieces which were placed into the pocket of the pacemaker pocket. The new pacemaker pulse generator was then placed in the pacemaker pocket and secured to the pectoral muscle with a single 0 Ethibond suture. The deep layer was then closed using individual sutures consisting of 2-0 Vicryl. The more superficial layer was then closed using individual sutures consisting of 3-0 Vicryl. The skin was then closed by placing a 4-0 Biosyn suture placed subcuticular with the free margins protruding 1 cm from the ends of the incision which were then cut at the level of the skin on both sides. Next, a Prineo dressing was applied. The patient tolerated the operation without complications. Total time for the operation for the surgeon part was 157 minutes. The explanted pacemaker pulse generator was a [employer] model 5816, serial #[id number]. The new pacemaker pulse generator implanted was a [employer] Assurity MRI with model #UP4548 with serial #[id number]. The ventricular lead that was capped was a [employer] model 1688TC/58 with serial #[id number] originally implanted 03/12/2009. The existing right atrial lead was a [employer] model 1688TC/52 with serial #[id number] originally implanted 03/12/2009. Testing in the operating room with the PSA analyzer for the existing right atrial lead in bipolar configuration showed a capture threshold of 1.25 volts and 0.4 milliseconds with P wave amplitude of 2.9 millivolts and the impedance of 416 ohms. The new right ventricular pacemaker lead implanted was a [employer] model LPA 1200M, 58 cm with serial #[id number]. Final testing in the operating room of the new right ventricular lead with the PSA analyzer showed a capture threshold of 0.5 volts at 0.4 milliseconds with R wave amplitude of 15.9 millivolts and lead impedance of 906 ohms.
== END 2021-01-15 18:23 | disposition home or self-care (01) ==
LOC: M SDC 12:28
PROVIDERS: ATTEND Internal Medicine Cardiovascular Disease
DX: Z45.010 Encounter for checking and testing of cardiac pacemaker pulse generator [battery] (principal); T82.110A Breakdown (mechanical) of cardiac electrode, initial encounter; Y71.2 Prosthetic and other implants, materials and accessory cardiovascular devices associated with adverse incidents; I50.9 Heart failure, unspecified; I11.0 Hypertensive heart disease with heart failure; E78.9 Disorder of lipoprotein metabolism, unspecified; E11.9 Type 2 diabetes mellitus without complications; K21.9 Gastro-esophageal reflux disease without esophagitis; F41.9 Anxiety disorder, unspecified; F32.9 Major depressive disorder, single episode, unspecified; G25.81 Restless legs syndrome; J44.9 Chronic obstructive pulmonary disease, unspecified; N40.0 Benign prostatic hyperplasia without lower urinary tract symptoms; Z90.49 Acquired absence of other specified parts of digestive tract; F17.210 Nicotine dependence, cigarettes, uncomplicated; Z79.899 Other long term (current) drug therapy; Z79.82 Long term (current) use of aspirin; Z79.84 Long term (current) use of oral hypoglycemic drugs
CPT/HCPCS: 33207; 33233; 33235; 71045; 76000; 93005; C1785; C1898; J0690; J2250; J2370; J2405; J3010; Q9967

== ENCOUNTER → 2022-09-22 | Outpatient (CLI) | payer MEDICARE ==
[~2022-09-22] MED LIST changes: -ASPI325T3 PO; +ASPI325T62 PO; -D31000TA2 PO; -KLOR10TA76 PO; -LR 1,000 ML IV ONE; +POTA-136 PO; +POTA-149 PO; -POTA10TA16 PO; +VITA100093 PO; -ceFAZolin SOD 2 GM in IV 1 EA IV ONE
[2022-09-22 17:27] LABS: ALBUMIN 3.8 G/DL (3.2-5.2); ALKALINE PHOSPHATASE 74 U/L (46-116); ALT/SGPT 22 U/L (7.0-40); AST/SGOT 20 U/L (<34); BILIRUBIN,TOTAL 0.4 MG/DL (0.3-1.2); BLOOD UREA NITROGEN 21 MG/DL (9-23); CALCIUM LEVEL 9.7 MG/DL (8.3-10.6); CARBON DIOXIDE LEVEL 30 MMOL/L (20-31); CHLORIDE LEVEL 101 MMOL/L (98-107); CHOLESTEROL LEVEL 157 MG/DL (<200); CHOLESTEROL RISK RATIO 3.12 (<5); CREATININE FOR GFR 0.85 MG/DL (0.70-1.30); GLOMERULAR FILTRATION RATE > 60.0 (>42); GLUCOSE, FASTING 115 MG/DL (74-106); HDL CHOLESTEROL 50.3 MG/DL (>40); LDL CHOLESTEROL 88.1 MG/DL (<100); NON-HDL-C 106.7 MG/DL; POTASSIUM SERUM 3.5 MMOL/L (3.5-5.1); PROSTATIC SPECIFIC AG MONITOR 0.53 NG/ML (< 4.00); SODIUM LEVEL 138 MMOL/L (136-145); TOTAL PROTEIN 7.2 G/DL (5.7-8.2); TRIGLYCERIDES LEVEL 93 MG/DL (<150)
[2022-09-22 17:30] LABS: BASO # 0.1 10^3/uL (0.0-0.2); BASO % 1.6 % (0.0-1.0); EOS # 0.3 10^3/uL (0.0-0.5); EOS % 3.5 % (0.0-3.0); HEMATOCRIT 49.3 % (42.0-52.0); HEMOGLOBIN 15.8 g/dl (13.5-17.5); LYMPH # 1.8 10^3/uL (1.5-5.0); LYMPH % 22.8 % (24.0-44.0); MEAN CORPUSCULAR HEMOGLOBIN 29.8 pg (27.0-33.0); MEAN CORPUSCULAR VOLUME 92.8 fl (80.0-96.0); MONO # 0.7 10^3/uL (0.0-0.8); MONO % 9.1 % (2.0-8.0); NEUTROPHILS % 62.8 % (36.0-66.0); PLATELET COUNT, AUTOMATED 242 10^3/uL (150-450); RED BLOOD COUNT 5.31 10^6/uL (4.30-6.10)
[2022-09-22 17:54] LABS: HEMOGLOBIN A1c 5.7 % (4.0-6.0)
== END ==
LOC: M WUC 12:59
PROVIDERS: ATTEND Physician Assistant
DX: I10 Essential (primary) hypertension (principal); E10.9 Type 1 diabetes mellitus without complications; E78.5 Hyperlipidemia, unspecified; E55.9 Vitamin D deficiency, unspecified; Z12.5 Encounter for screening for malignant neoplasm of prostate

== ENCOUNTER → 2022-12-21 | Outpatient (CLI) | payer MEDICARE ==
[2022-12-21 14:06] LABS: HEMOGLOBIN A1c 5.5 % (4.0-6.0)
== END ==
LOC: M WUC 09:07
PROVIDERS: ATTEND Physician Assistant
DX: E10.9 Type 1 diabetes mellitus without complications (principal)

== ENCOUNTER → 2023-05-07 | Outpatient (CLI) | payer MEDICARE ==
[~2023-05-07] MED LIST changes: +EZET10TA58 PO; -ZETI10TA16 PO
== END ==
LOC: M SOG 08:19
PROVIDERS: ATTEND Orthopaedic Surgery
DX: M25.511 Pain in right shoulder (principal); M25.811 Other specified joint disorders, right shoulder

== ENCOUNTER 2023-06-06 07:45 | Inpatient (IN) | payer MEDICARE ==
[~2023-06-06] VITALS: Ht 175.3 cm; Wt 93.1 kg
[2023-06-06] VITALS (19 sets, daily range): BP systolic 122–126; BP diastolic 60–66; TEMP 97.8–97.9; O2SAT 84–96
[2023-06-06] MEDS: IPRATROPIUM 0.5MG/ALBUTEROL 2.5MG INH SOL UD 3ML (DUONEB) NEB PRN ×3 (09:00→09:33)
[2023-06-06] MEDS ORDERED: ENOXAPARIN 40MG/0.4ML SYRINGE (J1650 PER 10MG) SC SCH (09:00)
[2023-06-06 09:06] LABS: BASO # 0.1 10^3/uL (0.0-0.2); BASO % 0.9 % (0.0-1.0); EOS % 0.2 % (0.0-3.0); HEMATOCRIT 49.8 % (42.0-52.0); HEMOGLOBIN 16.7 g/dl (13.5-17.5); LYMPH # 0.3 10^3/uL (1.5-5.0); LYMPH % 3.1 % (24.0-44.0); MEAN CORPUSCULAR HEMOGLOBIN 29.9 pg (27.0-33.0); MEAN CORPUSCULAR HGB CONC 33.5 g/dl (32.0-36.5); MEAN CORPUSCULAR VOLUME 89.1 fl (80.0-96.0); MONO # 1.3 10^3/uL (0.0-0.8); MONO % 12.7 % (2.0-8.0); NEUTROPHILS # 8.4 10^3/uL (1.5-8.5); NEUTROPHILS % 82.1 % (36.0-66.0); PLATELET COUNT, AUTOMATED 334 10^3/uL (150-450); RED BLOOD COUNT 5.59 10^6/uL (4.30-6.10); WHITE BLOOD COUNT 10.2 10^3/uL (4.0-10.0)
[2023-06-06] MEDS ORDERED: cefTRIAXone SOD 2 GM in D5W MINI-BAG PLUS 50 ML IV ONE (09:10)
[2023-06-06] MEDS ORDERED: AZITHROMYCIN INJ 500 MG, VIAL MATE ADAPTER 1 EACH in D5W 250 ML IV ONE (09:10)
[2023-06-06 09:14] LABS: ABG BASE EXCESS 2.9 (-2.0-2.0); ABG HCO3 28.6 MMOL/L (22.0-26.0); ABG O2 SATURATION 91.1 % (95.0-99.0); ABG PARTIAL PRESSURE CO2 47.4 mmHg (35.0-45.0); ABG PARTIAL PRESSURE O2 60.9 mmHg (75.0-100.0); ABG STANDARD HCO3 26.8 MMOL/L. (22.0-26.0); ABG pH (ARTERIAL) 7.398 UNITS (7.350-7.450)
[2023-06-06 09:20] LABS: ALBUMIN 2.6 G/DL (3.2-5.2); ALKALINE PHOSPHATASE 80 U/L (46-116); ALT/SGPT 34 U/L (7.0-40); AST/SGOT 29 U/L (<34); BILIRUBIN,DIRECT 0.4 MG/DL (<0.4); BILIRUBIN,TOTAL 0.7 MG/DL (0.3-1.2); BLOOD UREA NITROGEN 20 MG/DL (9-23); CARBON DIOXIDE LEVEL 31 MMOL/L (20-31); CHLORIDE LEVEL 95 MMOL/L (98-107); CREATININE FOR GFR 0.59 MG/DL (0.70-1.30); GLOMERULAR FILTRATION RATE > 60.0 (>42); GLUCOSE, FASTING 130 MG/DL (74-106); SODIUM LEVEL 135 MMOL/L (136-145); TOTAL PROTEIN 6.9 G/DL (5.7-8.2)
[2023-06-06 09:22] LABS: THYROID STIMULATING HORMONE 0.113 uIU/ML (0.55-4.78)
[2023-06-06 09:48] LABS: INR 1.4; PROTHROMBIN TIME 16.7 SECONDS (12.5-14.5)
[2023-06-06 09:49] LABS: PARTIAL THROMBOPLASTIN TIME 38.7 SECONDS (24.8-34.2)
[2023-06-06 09:58] LABS: LDH LACTATE DEHYDROGENASE 203 U/L (120-246)
[2023-06-06 10:01] LABS: FERRITIN 644.1 NG/ML (10.5-307.3)
[2023-06-06 10:06] LABS: PROCALCITONIN 0.19 ng/ml
[2023-06-06] MEDS ORDERED: MED REC IN PROGRESS XX SCH (10:10)
[2023-06-06] MEDS ORDERED: ISOVUE-370 76% 100ML VIAL As Ordered ONE (10:30)
[2023-06-06] MEDS ORDERED: GLUCAGON INJ 1MG VIAL SC PRN (11:05)
[2023-06-06] MEDS ORDERED: DEXTROSE 50% 50ML SYRINGE IV PRN (11:05)
[2023-06-06] MEDS ORDERED: GLUCOSE 4GM CHEW TABLET PO PRN (11:05)
[2023-06-06] MEDS ORDERED: hydrALAZINE 20MG/ML 1ML VIAL IV PRN (11:05)
[2023-06-06] MEDS ORDERED: PILL CUTTER 1 EACH XX PRN (11:25)
[2023-06-06] MEDS: IPRATROPIUM 0.5MG/ALBUTEROL 2.5MG INH SOL UD 3ML (DUONEB) NEB SCH ×3 (12:00→21:08)
[2023-06-06] MEDS ORDERED: ALBU8.5H PO (12:23)
[2023-06-06] MEDS ORDERED: HOME MED LIST COMPLETE! XX SCH (12:35)
[2023-06-06] MEDS: INSULIN LISPRO (NovoLOG) PER UNIT SC SCH ×3 (12:35→21:00)
[2023-06-06] MEDS ORDERED: HEPARIN SOD (PORCINE) 5000UNITS/ML 1ML VIAL/SYRINGE IV ONE (13:10)
[2023-06-06] MEDS ORDERED: HEPARIN SOD (PORCINE) 5000UNITS/ML 1ML VIAL/SYRINGE IV PRN (13:10)
[2023-06-06] MEDS ORDERED: REMDESIVIR 200 MG in NS 250 ML IV ONE (14:00)
[2023-06-06] MEDS: HEPARIN DRIP 25,000 UNITS in IV 1 EA IV SCH (14:04)
[2023-06-06] MEDS ORDERED: atenoloL 50 MG TAB PO SCH (21:00)
[2023-06-06] MEDS: PRAVASTATIN 20 MG TAB PO SCH (21:27)
[2023-06-07] VITALS (16 sets, daily range): BP systolic 120–148; BP diastolic 65–70; TEMP 97.3–98.5; O2SAT 70–95
[2023-06-07] MEDS: HEPARIN DRIP 25,000 UNITS in IV 1 EA IV SCH ×2 (03:47→16:49)
[2023-06-07] MEDS: IPRATROPIUM 0.5MG/ALBUTEROL 2.5MG INH SOL UD 3ML (DUONEB) NEB SCH ×4 (07:06→19:39)
[2023-06-07] MEDS: TIOTROPIUM INHALER/CAPSULE (SPIRIVA) INH SCH (07:06)
[2023-06-07 07:38] LABS: HEMATOCRIT 44.2 % (42.0-52.0); HEMOGLOBIN 14.8 g/dl (13.5-17.5); MEAN CORPUSCULAR HEMOGLOBIN 30.4 pg (27.0-33.0); MEAN CORPUSCULAR HGB CONC 33.5 g/dl (32.0-36.5); MEAN CORPUSCULAR VOLUME 90.8 fl (80.0-96.0); PLATELET COUNT, AUTOMATED 346 10^3/uL (150-450); RED BLOOD COUNT 4.87 10^6/uL (4.30-6.10); WHITE BLOOD COUNT 10.6 10^3/uL (4.0-10.0)
[2023-06-07 07:56] LABS: BLOOD UREA NITROGEN 28 MG/DL (9-23); CALCIUM LEVEL 10.1 MG/DL (8.3-10.6); CARBON DIOXIDE LEVEL 33 MMOL/L (20-31); CHLORIDE LEVEL 100 MMOL/L (98-107); CREATININE FOR GFR 0.57 MG/DL (0.70-1.30); GLOMERULAR FILTRATION RATE > 60.0 (>42); GLUCOSE, FASTING 121 MG/DL (74-106); POTASSIUM SERUM 4.2 MMOL/L (3.5-5.1); SODIUM LEVEL 140 MMOL/L (136-145)
[2023-06-07 07:59] LABS: FREE T4 1.43 NG/DL (0.89-1.76)
[2023-06-07] MEDS: dexAMETHasone 4 MG TAB PO SCH (08:12)
[2023-06-07] MEDS: AZITHROMYCIN 250MG TABLET PO SCH (08:12)
[2023-06-07] MEDS: PARoxetine 20MG TABLET PO SCH (08:12)
[2023-06-07] MEDS: DAPAGLIFLOZIN PROPANEDIOL 10MG TABLET (FARXIGA) PO SCH (08:12)
[2023-06-07] MEDS: atenoloL 25 MG TAB PO SCH (08:13)
[2023-06-07] MEDS: MULTIVITAMINS/MINERALS THERAP 1 TAB PO SCH (08:13)
[2023-06-07] MEDS: INSULIN LISPRO (NovoLOG) PER UNIT SC SCH ×4 (08:14→21:00)
[2023-06-07 09:10] LABS: ABG BASE EXCESS 6.9 (-2.0-2.0); ABG HCO3 33.3 MMOL/L (22.0-26.0); ABG O2 SATURATION 92.5 % (95.0-99.0); ABG PARTIAL PRESSURE CO2 54.3 mmHg (35.0-45.0); ABG PARTIAL PRESSURE O2 62.3 mmHg (75.0-100.0); ABG STANDARD HCO3 30.6 MMOL/L. (22.0-26.0); ABG pH (ARTERIAL) 7.406 UNITS (7.350-7.450)
[2023-06-07 11:23] LABS: TOTAL T3 79.5 NG/DL (60.0-181.0)
[2023-06-07] MEDS: BARICITINIB 2MG TABLET (OLUMIANT) FOR EUA PO SCH (11:31)
[2023-06-07] MEDS ORDERED: REMDESIVIR 100 MG in NS 250 ML IV SCH (14:00)
[2023-06-07 16:19] LABS: INR 1.35; PROTHROMBIN TIME 16.2 SECONDS (12.5-14.5)
[2023-06-07 16:20] LABS: PARTIAL THROMBOPLASTIN TIME 53.1 SECONDS (24.8-34.2)
[2023-06-07] MEDS: REMDESIVIR 100 MG in NS 250 ML IV SCH (16:50)
[2023-06-07] MEDS: PRAVASTATIN 20 MG TAB PO SCH (21:08)
[2023-06-07 23:46] LABS: INR 1.41; PROTHROMBIN TIME 16.8 SECONDS (12.5-14.5)
[2023-06-07 23:48] LABS: PARTIAL THROMBOPLASTIN TIME 50.4 SECONDS (24.8-34.2)
[2023-06-08] VITALS (17 sets, daily range): BP systolic 124–139; BP diastolic 58–71; TEMP 97–97.6; O2SAT 87–99
[2023-06-08] MEDS ORDERED: RAMELTEON 8 MG TAB (ROZEREM) PO ONE ×2 (04:00→23:35)
[2023-06-08 06:37] LABS: BASO # 0.1 10^3/uL (0.0-0.2); BASO % 0.5 % (0.0-1.0); HEMATOCRIT 41.5 % (42.0-52.0); HEMOGLOBIN 13.7 g/dl (13.5-17.5); LYMPH # 0.6 10^3/uL (1.5-5.0); LYMPH % 5.9 % (24.0-44.0); MONO # 0.7 10^3/uL (0.0-0.8); MONO % 6.3 % (2.0-8.0); NEUTROPHILS # 9.1 10^3/uL (1.5-8.5); NEUTROPHILS % 84.2 % (36.0-66.0); PLATELET COUNT, AUTOMATED 329 10^3/uL (150-450); RED BLOOD COUNT 4.56 10^6/uL (4.30-6.10); WHITE BLOOD COUNT 10.8 10^3/uL (4.0-10.0)
[2023-06-08] MEDS: HEPARIN DRIP 25,000 UNITS in IV 1 EA IV SCH (06:44)
[2023-06-08 07:04] LABS: BLOOD UREA NITROGEN 32 MG/DL (9-23); CALCIUM LEVEL 9.5 MG/DL (8.3-10.6); CARBON DIOXIDE LEVEL 33 MMOL/L (20-31); CHLORIDE LEVEL 103 MMOL/L (98-107); CREATININE FOR GFR 0.56 MG/DL (0.70-1.30); GLOMERULAR FILTRATION RATE > 60.0 (>42); GLUCOSE, FASTING 145 MG/DL (74-106); POTASSIUM SERUM 4.2 MMOL/L (3.5-5.1); SODIUM LEVEL 141 MMOL/L (136-145)
[2023-06-08] MEDS: IPRATROPIUM 0.5MG/ALBUTEROL 2.5MG INH SOL UD 3ML (DUONEB) NEB SCH ×4 (08:54→20:02)
[2023-06-08] MEDS: TIOTROPIUM INHALER/CAPSULE (SPIRIVA) INH SCH (08:54)
[2023-06-08] MEDS: atenoloL 25 MG TAB PO SCH (09:00)
[2023-06-08] MEDS: INSULIN LISPRO (NovoLOG) PER UNIT SC SCH ×4 (09:40→21:00)
[2023-06-08] MEDS: BARICITINIB 2MG TABLET (OLUMIANT) FOR EUA PO SCH (09:40)
[2023-06-08] MEDS: AZITHROMYCIN 250MG TABLET PO SCH (09:40)
[2023-06-08] MEDS: dexAMETHasone 4 MG TAB PO SCH (09:41)
[2023-06-08] MEDS: DAPAGLIFLOZIN PROPANEDIOL 10MG TABLET (FARXIGA) PO SCH (09:41)
[2023-06-08] MEDS: MULTIVITAMINS/MINERALS THERAP 1 TAB PO SCH (09:41)
[2023-06-08] MEDS: PARoxetine 20MG TABLET PO SCH (09:41)
[2023-06-08] MEDS ORDERED: ELIQ5TAB PO (10:47)
[2023-06-08] MEDS ORDERED: FUROSEMIDE 20MG/2ML VIAL IV ONE (12:00)
[2023-06-08] MEDS: ENOXAPARIN 100MG/1ML SYRINGE (J1650 PER 10MG) SC SCH (13:36)
[2023-06-08] MEDS: REMDESIVIR 100 MG in NS 250 ML IV SCH (17:03)
[2023-06-08] MEDS: PRAVASTATIN 20 MG TAB PO SCH (20:49)
[2023-06-09] VITALS (22 sets, daily range): BP systolic 127–143; BP diastolic 63–80; TEMP 96.9–97.5; O2SAT 83–95
[2023-06-09] MEDS: ENOXAPARIN 100MG/1ML SYRINGE (J1650 PER 10MG) SC SCH ×2 (00:30→12:04)
[2023-06-09 07:47] LABS: BASO % 0.3 % (0.0-1.0); HEMATOCRIT 41.1 % (42.0-52.0); HEMOGLOBIN 13.5 g/dl (13.5-17.5); LYMPH # 0.8 10^3/uL (1.5-5.0); LYMPH % 7.4 % (24.0-44.0); MEAN CORPUSCULAR HEMOGLOBIN 29.9 pg (27.0-33.0); MEAN CORPUSCULAR HGB CONC 32.8 g/dl (32.0-36.5); MEAN CORPUSCULAR VOLUME 91.1 fl (80.0-96.0); MONO # 0.9 10^3/uL (0.0-0.8); MONO % 8.4 % (2.0-8.0); NEUTROPHILS # 8.7 10^3/uL (1.5-8.5); PLATELET COUNT, AUTOMATED 338 10^3/uL (150-450); RED BLOOD COUNT 4.51 10^6/uL (4.30-6.10); WHITE BLOOD COUNT 10.7 10^3/uL (4.0-10.0)
[2023-06-09] MEDS: IPRATROPIUM 0.5MG/ALBUTEROL 2.5MG INH SOL UD 3ML (DUONEB) NEB SCH ×4 (07:58→20:58)
[2023-06-09] MEDS: TIOTROPIUM INHALER/CAPSULE (SPIRIVA) INH SCH (07:58)
[2023-06-09 08:15] LABS: BLOOD UREA NITROGEN 29 MG/DL (9-23); CARBON DIOXIDE LEVEL 38 MMOL/L (20-31); CHLORIDE LEVEL 100 MMOL/L (98-107); CREATININE FOR GFR 0.51 MG/DL (0.70-1.30); GLOMERULAR FILTRATION RATE > 60.0 (>42); GLUCOSE, FASTING 120 MG/DL (74-106); POTASSIUM SERUM 4.4 MMOL/L (3.5-5.1); SODIUM LEVEL 141 MMOL/L (136-145)
[2023-06-09] MEDS: atenoloL 25 MG TAB PO SCH (09:00)
[2023-06-09] MEDS: BARICITINIB 2MG TABLET (OLUMIANT) FOR EUA PO SCH (09:48)
[2023-06-09] MEDS: INSULIN LISPRO (NovoLOG) PER UNIT SC SCH ×4 (09:48→20:31)
[2023-06-09] MEDS: dexAMETHasone 4 MG TAB PO SCH (09:48)
[2023-06-09] MEDS: DAPAGLIFLOZIN PROPANEDIOL 10MG TABLET (FARXIGA) PO SCH (09:49)
[2023-06-09] MEDS: PARoxetine 20MG TABLET PO SCH (09:49)
[2023-06-09] MEDS: MULTIVITAMINS/MINERALS THERAP 1 TAB PO SCH (09:49)
[2023-06-09] MEDS: SODIUM CHLORIDE NASAL 0.65% SPRAY BTL (OCEAN) SCH ×3 (11:17→20:30)
[2023-06-09] MEDS ORDERED: FUROSEMIDE 40MG/4ML VIAL IV ONE (14:30)
[2023-06-09] MEDS: REMDESIVIR 100 MG in NS 250 ML IV SCH (16:06)
[2023-06-09] MEDS: PRAVASTATIN 20 MG TAB PO SCH (20:30)
[2023-06-09] MEDS ORDERED: RAMELTEON 8 MG TAB (ROZEREM) PO ONE (21:05)
[2023-06-10] VITALS (10 sets, daily range): BP systolic 119–152; BP diastolic 66–78; TEMP 96–98.4; O2SAT 80–96
[2023-06-10] MEDS: ENOXAPARIN 100MG/1ML SYRINGE (J1650 PER 10MG) SC SCH ×2 (01:19→12:50)
[2023-06-10] MEDS ORDERED: NICOTINE 14 MG/24 HR TRANSDERMAL TD ONE (03:00)
[2023-06-10 07:32] LABS: BASO % 0.4 % (0.0-1.0); HEMOGLOBIN 13.2 g/dl (13.5-17.5); LYMPH % 10.9 % (24.0-44.0); MEAN CORPUSCULAR HEMOGLOBIN 29.6 pg (27.0-33.0); MEAN CORPUSCULAR VOLUME 89.7 fl (80.0-96.0); MONO # 0.9 10^3/uL (0.0-0.8); MONO % 9.9 % (2.0-8.0); NEUTROPHILS # 7.2 10^3/uL (1.5-8.5); NEUTROPHILS % 76.1 % (36.0-66.0); PLATELET COUNT, AUTOMATED 319 10^3/uL (150-450); RED BLOOD COUNT 4.46 10^6/uL (4.30-6.10); WHITE BLOOD COUNT 9.5 10^3/uL (4.0-10.0)
[2023-06-10 07:59] LABS: BLOOD UREA NITROGEN 35 MG/DL (9-23); CALCIUM LEVEL 8.7 MG/DL (8.3-10.6); CARBON DIOXIDE LEVEL 37 MMOL/L (20-31); CHLORIDE LEVEL 98 MMOL/L (98-107); CREATININE FOR GFR 0.57 MG/DL (0.70-1.30); GLOMERULAR FILTRATION RATE > 60.0 (>42); GLUCOSE, FASTING 103 MG/DL (74-106); POTASSIUM SERUM 3.9 MMOL/L (3.5-5.1); SODIUM LEVEL 139 MMOL/L (136-145)
[2023-06-10] MEDS: TIOTROPIUM INHALER/CAPSULE (SPIRIVA) INH SCH (08:09)
[2023-06-10] MEDS: IPRATROPIUM 0.5MG/ALBUTEROL 2.5MG INH SOL UD 3ML (DUONEB) NEB SCH ×3 (08:09→16:40)
[2023-06-10] MEDS: BARICITINIB 2MG TABLET (OLUMIANT) FOR EUA PO SCH (09:33)
[2023-06-10] MEDS: INSULIN LISPRO (NovoLOG) PER UNIT SC SCH ×2 (09:33→12:44)
[2023-06-10] MEDS: DAPAGLIFLOZIN PROPANEDIOL 10MG TABLET (FARXIGA) PO SCH (09:33)
[2023-06-10] MEDS: atenoloL 25 MG TAB PO SCH (09:34)
[2023-06-10] MEDS: dexAMETHasone 4 MG TAB PO SCH (09:34)
[2023-06-10] MEDS: PARoxetine 20MG TABLET PO SCH (09:34)
[2023-06-10] MEDS: MULTIVITAMINS/MINERALS THERAP 1 TAB PO SCH (09:34)
[2023-06-10] MEDS: SODIUM CHLORIDE NASAL 0.65% SPRAY BTL (OCEAN) SCH ×2 (09:40→16:00)
[2023-06-10] MEDS ORDERED: AMLO1TAB24 PO (13:06)
[2023-06-10] MEDS ORDERED: ELIQ5TAB PO (13:06)
[2023-06-10] MEDS ORDERED: ATEN25TA PO (13:06)
[2023-06-10] MEDS ORDERED: PRED10TA2 PO (13:06)
[2023-06-10] MEDS ORDERED: SYMB80INH INH (13:06)
[2023-06-10] MEDS ORDERED: IPRA0.00 INH (13:21)
[2023-06-10] MEDS ORDERED: PRED20TA PO (13:21)
[2023-06-10] MEDS: REMDESIVIR 100 MG in NS 250 ML IV SCH (16:07)
== END 2023-06-10 17:30 | disposition home health service (06) | DRG 177 ==
LOC: M ED 07:45 → M ED INP 10:42 → ENRESERV 13:45 → M PCU 14:47
PROVIDERS: ADMIT Internal Medicine; ATTEND Internal Medicine
PROC: XW033E5 Introduction of Remdesivir Anti-infective into Peripheral Vein, Percutaneous Approach, New Technology Group 5 (ICD-10-PCS; 2023-06-06)
PROC: 3E0333Z Introduction of Anti-inflammatory into Peripheral Vein, Percutaneous Approach (ICD-10-PCS; 2023-06-06)
PROC: B246ZZZ Ultrasonography of Right and Left Heart (ICD-10-PCS; principal; 2023-06-07)
DX: U07.1 COVID-19 (principal); J96.21 Acute and chronic respiratory failure with hypoxia; J12.82 Pneumonia due to coronavirus disease 2019; I26.99 Other pulmonary embolism without acute cor pulmonale; I50.32 Chronic diastolic (congestive) heart failure; J44.1 Chronic obstructive pulmonary disease with (acute) exacerbation; J44.0 Chronic obstructive pulmonary disease with (acute) lower respiratory infection; E87.29 Other acidosis; I27.20 Pulmonary hypertension, unspecified; I11.0 Hypertensive heart disease with heart failure; I49.5 Sick sinus syndrome; F32.A Depression, unspecified; E11.9 Type 2 diabetes mellitus without complications; R04.0 Epistaxis; Z99.81 Dependence on supplemental oxygen; Z95.0 Presence of cardiac pacemaker; Z90.49 Acquired absence of other specified parts of digestive tract; F17.200 Nicotine dependence, unspecified, uncomplicated; Z79.82 Long term (current) use of aspirin; Z79.84 Long term (current) use of oral hypoglycemic drugs; Z79.899 Other long term (current) drug therapy

== ENCOUNTER → 2023-09-23 | Outpatient (REF) | payer MEDICARE ==
[~2023-09-23] MED LIST changes: +ALBU8.5H PO; +AMLO1TAB24 PO; +ATEN25TA PO; +ELIQ5TAB PO; +IPRA0.00 INH; +PRED10TA2 PO; +PRED20TA PO; +SYMB80INH INH
[2023-09-23 19:26] LABS: HEMOGLOBIN A1c 5.4 % (4.0-6.0)
== END ==
LOC: M LABWUC 16:28
PROVIDERS: ATTEND Physician Assistant
DX: E10.9 Type 1 diabetes mellitus without complications (principal)

== ENCOUNTER → 2023-11-10 | Outpatient (CLI) | payer MEDICARE ==
[~2023-11-10] MED LIST changes: -ASPI325T62 PO; +BAYE325T PO
== END ==
LOC: M SOG 07:52
PROVIDERS: ATTEND Orthopaedic Surgery
DX: M25.811 Other specified joint disorders, right shoulder (principal)

== ENCOUNTER → 2023-12-23 | Outpatient (CLI) | payer MEDICARE ==
[2023-12-23 17:00] LABS: AMORPHOUS SEDIMENT SMALL (NEGATIVE); APPEARANCE, URINE CLOUDY (CLEAR); BACTERIA, URINE AUTO NEGATIVE (NEGATIVE); BILIRUBIN, URINE AUTO NEGATIVE (NEGATIVE); BLOOD, URINE BLOOD NEGATIVE (NEGATIVE); COLOR, URINE YELLOW (YELLOW); GLUCOSE, URINE (UA) AUTO 3+ mg/dL (NEGATIVE); KETONE, URINE AUTO TRACE mg/dL (NEGATIVE); LEUKOCYTE ESTERASE, URINE AUTO NEGATIVE (NEGATIVE); MUCUS, URINE SMALL (NEGATIVE); NITRITE, URINE AUTO NEGATIVE (NEGATIVE); PROTEIN, URINE AUTO 1+ mg/dL (NEGATIVE); RBC, URINE AUTO 1 /HPF (0-3); SPECIFIC GRAVITY URINE AUTO 1.013 (1.002-1.035); SQUAMOUS EPITHELIAL CELL UR AU 0 /HPF (0-6); UROBILINOGEN, URINE AUTO 0.2 mg/dL (0.0-2.0); WBC, URINE AUTO 1 /HPF (0-3)
[2023-12-23 17:01] LABS: HEMATOCRIT 42.1 % (42.0-52.0); HEMOGLOBIN 12.5 g/dl (13.5-17.5); MEAN CORPUSCULAR HEMOGLOBIN 27.7 pg (27.0-33.0); MEAN CORPUSCULAR HGB CONC 29.7 g/dl (32.0-36.5); MEAN CORPUSCULAR VOLUME 93.1 fl (80.0-96.0); PLATELET COUNT, AUTOMATED 242 10^3/uL (150-450); RED BLOOD COUNT 4.52 10^6/uL (4.30-6.10)
[2023-12-23 17:10] LABS: HEMOGLOBIN A1c 5.8 % (4.0-6.0)
[2023-12-23 17:27] LABS: ALBUMIN 3.6 G/DL (3.2-5.2); ALKALINE PHOSPHATASE 79 U/L (46-116); ALT/SGPT 20 U/L (7.0-40); AST/SGOT 15 U/L (<34); BILIRUBIN,TOTAL 0.7 MG/DL (0.3-1.2); BLOOD UREA NITROGEN 13 MG/DL (9-23); CALCIUM LEVEL 9.9 MG/DL (8.3-10.6); CARBON DIOXIDE LEVEL 36 MMOL/L (20-31); CHLORIDE LEVEL 101 MMOL/L (98-107); CHOLESTEROL LEVEL 143 MG/DL (<200); CHOLESTEROL RISK RATIO 2.22 (<5); CREATININE FOR GFR 0.63 MG/DL (0.70-1.30); GLOMERULAR FILTRATION RATE > 60.0 (>42); GLUCOSE, FASTING 103 MG/DL (74-106); HDL CHOLESTEROL 64.4 MG/DL (>40); LDL CHOLESTEROL 65.8 MG/DL (<100); NON-HDL-C 78.6 MG/DL; POTASSIUM SERUM 3.9 MMOL/L (3.5-5.1); SODIUM LEVEL 143 MMOL/L (136-145); TOTAL PROTEIN 7.2 G/DL (5.7-8.2); TRIGLYCERIDES LEVEL 64 MG/DL (<150)
[2023-12-23 17:30] LABS: THYROID STIMULATING HORMONE 0.394 uIU/ML (0.55-4.78); TOTAL 25(OH) VITAMIN D 69.6 NG/ML (20.0-100.0)
[2023-12-24 15:47] LABS: WHITE BLOOD COUNT 7.3 10^3/uL (4.0-10.0)
== END ==
LOC: M WUC 13:38
PROVIDERS: ATTEND Physician Assistant
DX: E10.9 Type 1 diabetes mellitus without complications (principal); E78.5 Hyperlipidemia, unspecified; R35.0 Frequency of micturition; Z12.5 Encounter for screening for malignant neoplasm of prostate; E55.9 Vitamin D deficiency, unspecified; I10 Essential (primary) hypertension

== ENCOUNTER 2024-01-07 01:10 | Emergency (ER) | payer MEDICARE ==
[~2024-01-07] VITALS: Ht 175.3 cm; Wt 95.5 kg
[2024-01-07 01:52] LABS: VENOUS BASE EXCESS 5.8 (-2.0-2.0); VENOUS HCO3 33.3 MMOL/L (23.0-27.0); VENOUS O2 SATURATION 89.3 % (60.0-80.0); VENOUS PARTIAL PRESSURE CO2 62.2 mmHg (38.0-50.0); VENOUS PARTIAL PRESSURE O2 59.2 mmHg (30.0-50.0); VENOUS PH 7.346 UNITS (7.330-7.430); VENOUS STANDARD HCO3 29.5 MMOL/L; VENOUS TOTAL CO2 35.2 MMOL/L (24.0-28.0)
[2024-01-07 01:55] LABS: BASO # 0.1 10^3/uL (0.0-0.2); BASO % 1.1 % (0.0-1.0); EOS # 0.2 10^3/uL (0.0-0.5); EOS % 2.2 % (0.0-3.0); HEMATOCRIT 38.2 % (42.0-52.0); HEMOGLOBIN 11.6 g/dl (13.5-17.5); LYMPH # 0.7 10^3/uL (1.5-5.0); LYMPH % 8.1 % (24.0-44.0); MEAN CORPUSCULAR HGB CONC 30.4 g/dl (32.0-36.5); MEAN CORPUSCULAR VOLUME 92.3 fl (80.0-96.0); MONO # 0.6 10^3/uL (0.0-0.8); MONO % 7.3 % (2.0-8.0); NEUTROPHILS # 6.8 10^3/uL (1.5-8.5); NEUTROPHILS % 80.8 % (36.0-66.0); PLATELET COUNT, AUTOMATED 241 10^3/uL (150-450); RED BLOOD COUNT 4.14 10^6/uL (4.30-6.10); WHITE BLOOD COUNT 8.4 10^3/uL (4.0-10.0)
[2024-01-07 02:21] LABS: BLOOD UREA NITROGEN 14 MG/DL (9-23); CALCIUM LEVEL 9.3 MG/DL (8.3-10.6); CARBON DIOXIDE LEVEL 33 MMOL/L (20-31); CHLORIDE LEVEL 106 MMOL/L (98-107); CK-MB VALUE MASS 3.7 NG/ML (<3.6); CPK CREATINE PHOSPHOKINASE 121 U/L (46-171); CREATININE FOR GFR 0.75 MG/DL (0.70-1.30); GLOMERULAR FILTRATION RATE > 60.0 (>42); GLUCOSE, FASTING 134 MG/DL (74-106); MB/CK RELATIVE INDEX 3.05 (< OR =4); POTASSIUM SERUM 3.7 MMOL/L (3.5-5.1); SODIUM LEVEL 142 MMOL/L (136-145)
[2024-01-07] MEDS: LIDOCAINE 5% (LIDODERM) PATCH TD ONE (03:57)
[2024-01-07] MEDS: ANEXSIA, NORCO 7.5MG/325MG TABLET(HYDROCODONE/APAP) PO ONE (03:57)
[2024-01-07] MEDS ORDERED: LIDO5DIS41 TD (05:18)
[2024-01-07] MEDS ORDERED: HYDR-3713 PO (05:18)
[2024-01-07 05:33] VITALS: BP 149/75; TEMP 98.4; O2SAT 93
== END 2024-01-07 05:35 | disposition home or self-care (01) ==
LOC: M ED 01:10
DX: S20.212A Contusion of left front wall of thorax, initial encounter (principal); Y92.019 Unspecified place in single-family (private) house as the place of occurrence of the external cause; Y93.9 Activity, unspecified; Y99.9 Unspecified external cause status; W19.XXXA Unspecified fall, initial encounter; Z79.1 Long term (current) use of non-steroidal anti-inflammatories (NSAID); Z79.51 Long term (current) use of inhaled steroids; Z79.84 Long term (current) use of oral hypoglycemic drugs; Z79.810 Long term (current) use of selective estrogen receptor modulators (SERMs); Z79.899 Other long term (current) drug therapy

== ENCOUNTER 2024-02-02 15:25 | Inpatient (IN) | payer MEDICARE ==
[~2024-02-02] VITALS: Ht 177.8 cm; Wt 100.6 kg
[~2024-02-02 15:25] MED LIST changes: +HYDR-3713 PO; +LIDO5DIS41 TD
[2024-02-02 16:04] LABS: VENOUS BASE EXCESS 15.4 (-2.0-2.0); VENOUS HCO3 46.1 MMOL/L (23.0-27.0); VENOUS O2 SATURATION 62.5 % (60.0-80.0); VENOUS PH 7.282 UNITS (7.330-7.430); VENOUS STANDARD HCO3 38.4 MMOL/L; VENOUS TOTAL CO2 49.2 MMOL/L (24.0-28.0)
[2024-02-02 16:07] LABS: BASO # 0.1 10^3/uL (0.0-0.2); BASO % 1.3 % (0.0-1.0); EOS % 0.4 % (0.0-3.0); HEMATOCRIT 37.7 % (42.0-52.0); HEMOGLOBIN 10.8 g/dl (13.5-17.5); LYMPH # 0.4 10^3/uL (1.5-5.0); LYMPH % 7.7 % (24.0-44.0); MEAN CORPUSCULAR HGB CONC 28.6 g/dl (32.0-36.5); MEAN CORPUSCULAR VOLUME 97.7 fl (80.0-96.0); MONO # 0.4 10^3/uL (0.0-0.8); MONO % 7.8 % (2.0-8.0); NEUTROPHILS # 4.5 10^3/uL (1.5-8.5); NEUTROPHILS % 82.4 % (36.0-66.0); PLATELET COUNT, AUTOMATED 181 10^3/uL (150-450); RED BLOOD COUNT 3.86 10^6/uL (4.30-6.10); WHITE BLOOD COUNT 5.5 10^3/uL (4.0-10.0)
[2024-02-02] MEDS: methylPREDNISolone 125MG 2ML VIAL IV ONE (16:21)
[2024-02-02] MEDS: IPRATROPIUM 0.5MG/ALBUTEROL 2.5MG INH SOL UD 3ML (DUONEB) NEB SCH (16:22)
[2024-02-02 16:47] LABS: ALBUMIN 3.1 G/DL (3.2-5.2); ALKALINE PHOSPHATASE 77 U/L (46-116); ALT/SGPT 22 U/L (7.0-40); AST/SGOT 16 U/L (<34); BILIRUBIN,DIRECT 0.2 MG/DL (<0.4); BILIRUBIN,TOTAL 0.5 MG/DL (0.3-1.2); BLOOD UREA NITROGEN 15 MG/DL (9-23); CALCIUM LEVEL 9.4 MG/DL (8.3-10.6); CARBON DIOXIDE LEVEL > 40.0 MMOL/L (20-31); CHLORIDE LEVEL 102 MMOL/L (98-107); CREATININE FOR GFR 0.75 MG/DL (0.70-1.30); GLOMERULAR FILTRATION RATE > 60.0 (>42); GLUCOSE, FASTING 108 MG/DL (74-106); POTASSIUM SERUM 4.2 MMOL/L (3.5-5.1); SODIUM LEVEL 143 MMOL/L (136-145); THYROID STIMULATING HORMONE 0.365 uIU/ML (0.55-4.78); TOTAL PROTEIN 6.3 G/DL (5.7-8.2)
[2024-02-02 17:32] LABS: ABG BASE EXCESS 6.8 (-2.0-2.0); ABG HCO3 34.7 MMOL/L (22.0-26.0); ABG O2 SATURATION 93.5 % (95.0-99.0); ABG STANDARD HCO3 30.6 MMOL/L. (22.0-26.0); ABG TOTAL CO2 36.8 MMOL/L (23.0-31.0); ABG pH (ARTERIAL) 7.325 UNITS (7.350-7.450)
[2024-02-02 17:36] LABS: ABG PARTIAL PRESSURE CO2 68.2 mmHg (35.0-45.0)
[2024-02-02 18:49] LABS: ABG BASE EXCESS 7.5 (-2.0-2.0); ABG HCO3 34.6 MMOL/L (22.0-26.0); ABG O2 SATURATION 86.7 % (95.0-99.0); ABG STANDARD HCO3 31.1 MMOL/L. (22.0-26.0); ABG TOTAL CO2 36.5 MMOL/L (23.0-31.0); ABG pH (ARTERIAL) 7.366 UNITS (7.350-7.450)
[2024-02-02 18:51] LABS: ABG PARTIAL PRESSURE CO2 61.8 mmHg (35.0-45.0)
[2024-02-02] MEDS: FUROSEMIDE 40MG/4ML VIAL IV ONE (19:21)
[2024-02-02] MEDS: hydrALAZINE 20MG/ML 1ML VIAL IV ONE (20:12)
[2024-02-02] MEDS ORDERED: ELIQ2.5T PO (20:30)
[2024-02-02] MEDS ORDERED: FARX1TAB5 PO (20:30)
[2024-02-02] MEDS ORDERED: DILT180C70 PO (20:30)
[2024-02-02] MEDS ORDERED: PRAM0.123 PO (20:30)
[2024-02-02] MEDS ORDERED: QUET50TA4 PO (20:30)
[2024-02-02] MEDS ORDERED: PANT40TA29 PO (20:30)
[2024-02-02] MEDS ORDERED: HOME MED LIST COMPLETE! XX SCH (20:35)
[2024-02-02] MEDS ORDERED: GLUCOSE 4 GM CHEW PO PRN (20:45)
[2024-02-02] MEDS ORDERED: ALBUTEROL SULFATE 2.5MG/0.5ML INH NEB SOLN NEB PRN (20:45)
[2024-02-02] MEDS ORDERED: GLUCAGON INJ 1MG VIAL SC PRN (20:45)
[2024-02-02] MEDS ORDERED: DEXTROSE 50% 50ML SYRINGE IV PRN (20:45)
[2024-02-02] MEDS ORDERED: ACETAMINOPHEN TAB 650MG DOSE (2X325MG) PO PRN (20:45)
[2024-02-02] MEDS: INSULIN LISPRO (NovoLOG) PER UNIT SC SCH (21:00)
[2024-02-02] MEDS: DOCUSATE SODIUM 100MG CAPSULE PO SCH (21:00)
[2024-02-02] MEDS ORDERED: ALBUTEROL 90 MCG/ACT 8GM HFA INHALER INH PRN (22:10)
[2024-02-02 22:37] LABS: PROCALCITONIN 0.08 ng/ml
[2024-02-03] MEDS: PRAVASTATIN 20 MG TAB PO SCH (00:16)
[2024-02-03] MEDS: QUEtiapine FUMARATE 50MG TAB PO SCH (00:17)
[2024-02-03] MEDS: methylPREDNISolone 125MG 2ML VIAL IV SCH ×2 (00:17→09:25)
[2024-02-03] MEDS: APIXABAN 2.5 MG TAB (ELIQUIS) PO SCH (00:17)
[2024-02-03 01:39] VITALS: BP 128/74; TEMP 98.2; O2SAT 84; O2SAT 91
[2024-02-03] MEDS: IPRATROPIUM 0.5MG/ALBUTEROL 2.5MG INH SOL UD 3ML (DUONEB) NEB SCH (02:35)
[2024-02-03] MEDS: GABAPENTIN 100 MG CAP PO ONE (02:48)
[2024-02-03] MEDS: NICOTINE 21MG/24HR 1 EA TRANSDERMAL TD SCH (02:49)
[2024-02-03 03:51] VITALS: O2SAT 95
[2024-02-03 03:52] VITALS: O2SAT 91
[2024-02-03 03:53] LABS: HEMATOCRIT 36.2 % (42.0-52.0); HEMOGLOBIN 10.8 g/dl (13.5-17.5); MEAN CORPUSCULAR HEMOGLOBIN 27.3 pg (27.0-33.0); MEAN CORPUSCULAR HGB CONC 29.8 g/dl (32.0-36.5); MEAN CORPUSCULAR VOLUME 91.4 fl (80.0-96.0); PLATELET COUNT, AUTOMATED 208 10^3/uL (150-450); RED BLOOD COUNT 3.96 10^6/uL (4.30-6.10); WHITE BLOOD COUNT 5.4 10^3/uL (4.0-10.0)
[2024-02-03 04:03] VITALS: BP 135/72; TEMP 97.9; O2SAT 92
[2024-02-03 04:17] LABS: PERCENT SATURATION 7.3 % (19.7-50.0)
[2024-02-03 04:18] LABS: BLOOD UREA NITROGEN 16 MG/DL (9-23); CALCIUM LEVEL 9.4 MG/DL (8.3-10.6); CARBON DIOXIDE LEVEL 39 MMOL/L (20-31); CHLORIDE LEVEL 98 MMOL/L (98-107); CREATININE FOR GFR 0.72 MG/DL (0.70-1.30); GLOMERULAR FILTRATION RATE > 60.0 (>42); GLUCOSE, FASTING 141 MG/DL (74-106); MAGNESIUM LEVEL 1.5 MG/DL (1.8-2.4); POTASSIUM SERUM 3.5 MMOL/L (3.5-5.1); SODIUM LEVEL 140 MMOL/L (136-145)
[2024-02-03] MEDS: TIOTROPIUM INHALER/CAPSULE (SPIRIVA) INH SCH (07:46)
[2024-02-03] MEDS: INSULIN LISPRO (NovoLOG) PER UNIT SC SCH (07:58)
[2024-02-03] MEDS: PARoxetine 20MG TABLET PO SCH (07:59)
[2024-02-03] MEDS: VITAMIN D 1,000 INTERNATIONAL UNITS TABLET PO SCH (07:59)
[2024-02-03] MEDS: PANTOPRAZOLE 40MG TAB (PROTONIX) PO SCH (07:59)
[2024-02-03 08:48] LABS: INR 1.38; PARTIAL THROMBOPLASTIN TIME 28.9 SECONDS (24.8-34.2); PROTHROMBIN TIME 16.5 SECONDS (12.5-14.5)
[2024-02-03] MEDS ORDERED: AZITHROMYCIN 250MG TABLET PO SCH (09:00)
[2024-02-03] MEDS ORDERED: FUROSEMIDE 40 MG TAB PO SCH (09:00)
[2024-02-03] MEDS ORDERED: predniSONE 20 MG TAB PO SCH (09:00)
[2024-02-03] MEDS ORDERED: dilTIAZem **CD** 180MG CAP PO SCH (09:00)
[2024-02-03] MEDS: FERROUS SULFATE 325MG TAB PO SCH (09:25)
[2024-02-03] MEDS: MAGNESIUM OXIDE 400MG TAB (MAG-OX) PO SCH (09:25)
[2024-02-03] MEDS: MAG SULF 1GM/100ML (MAG RUN) 1 GM in IV 1 EA IV SCH (09:26)
[2024-02-03] MEDS: FUROSEMIDE 40MG/4ML VIAL IV SCH (09:26)
[2024-02-03 12:00] VITALS: BP 159/85; TEMP 98.1; O2SAT 93
[2024-02-03 20:15] VITALS: BP 159/85; TEMP 98.1; O2SAT 94
[2024-02-03] MEDS: METOPROLOL TART 12.5 MG PER 1/2 TAB PO SCH (20:28)
[2024-02-03] MEDS: ENTRESTO 24-26MG TABLET (SACUBITRIL/VALSARTAN) PO SCH (20:28)
[2024-02-03] MEDS: PRAMIPEXOLE (MIRAPEX) 0.125 MG TAB PO SCH (20:37)
[2024-02-04 04:13] VITALS: BP 154/76; TEMP 97.9; O2SAT 92
[2024-02-04] MEDS ORDERED: MAG SULF 1GM/100ML (MAG RUN) 1 GM in IV 1 EA IV ONE (04:40)
[2024-02-04 05:27] LABS: ALBUMIN 3.4 G/DL (3.2-5.2); ALKALINE PHOSPHATASE 75 U/L (46-116); ALT/SGPT 26 U/L (7.0-40); AST/SGOT 30 U/L (<34); BILIRUBIN,TOTAL 0.5 MG/DL (0.3-1.2); BLOOD UREA NITROGEN 20 MG/DL (9-23); CALCIUM LEVEL 9.2 MG/DL (8.3-10.6); CARBON DIOXIDE LEVEL > 40.0 MMOL/L (20-31); CHLORIDE LEVEL 100 MMOL/L (98-107); CREATININE FOR GFR 0.74 MG/DL (0.70-1.30); GLOMERULAR FILTRATION RATE > 60.0 (>42); GLUCOSE, FASTING 139 MG/DL (74-106); MAGNESIUM LEVEL 2.2 MG/DL (1.8-2.4); POTASSIUM SERUM 3.7 MMOL/L (3.5-5.1); SODIUM LEVEL 144 MMOL/L (136-145); TOTAL PROTEIN 6.4 G/DL (5.7-8.2)
[2024-02-04 06:27] LABS: HEMOGLOBIN 10.8 g/dl (13.5-17.5); MEAN CORPUSCULAR HEMOGLOBIN 27.2 pg (27.0-33.0); MEAN CORPUSCULAR VOLUME 90.7 fl (80.0-96.0); PLATELET COUNT, AUTOMATED 192 10^3/uL (150-450); RED BLOOD COUNT 3.97 10^6/uL (4.30-6.10); WHITE BLOOD COUNT 12.6 10^3/uL (4.0-10.0)
[2024-02-04 06:56] LABS: ALBUMIN 3.1 G/DL (3.2-5.2); ALKALINE PHOSPHATASE 68 U/L (46-116); ALT/SGPT 23 U/L (7.0-40); AST/SGOT 26 U/L (<34); BILIRUBIN,TOTAL 0.4 MG/DL (0.3-1.2); BLOOD UREA NITROGEN 19 MG/DL (9-23); CALCIUM LEVEL 8.8 MG/DL (8.3-10.6); CARBON DIOXIDE LEVEL > 40.0 MMOL/L (20-31); CHLORIDE LEVEL 101 MMOL/L (98-107); CREATININE FOR GFR 0.66 MG/DL (0.70-1.30); GLOMERULAR FILTRATION RATE > 60.0 (>42); GLUCOSE, FASTING 129 MG/DL (74-106); SODIUM LEVEL 144 MMOL/L (136-145)
[2024-02-04] MEDS: NICOTINE 21MG/24HR 1 EA TRANSDERMAL TD SCH (08:13)
[2024-02-04] MEDS: POTASSIUM CHLORIDE 10MEQ SR TABLET PO SCH (08:23)
[2024-02-04] MEDS: POTASSIUM CHLORIDE 10MEQ SR TABLET PO ONE (10:20)
[2024-02-04] MEDS: methylPREDNISolone 125MG 2ML VIAL IV ONE (20:51)
[2024-02-04 21:13] LABS: BASO % 0.2 % (0.0-1.0); EOS % 0.1 % (0.0-3.0); HEMOGLOBIN 11.8 g/dl (13.5-17.5); LYMPH # 1.2 10^3/uL (1.5-5.0); LYMPH % 9.5 % (24.0-44.0); MEAN CORPUSCULAR HEMOGLOBIN 27.7 pg (27.0-33.0); MEAN CORPUSCULAR HGB CONC 30.3 g/dl (32.0-36.5); MEAN CORPUSCULAR VOLUME 91.5 fl (80.0-96.0); MONO # 1.2 10^3/uL (0.0-0.8); MONO % 9.1 % (2.0-8.0); NEUTROPHILS # 10.5 10^3/uL (1.5-8.5); NEUTROPHILS % 80.8 % (36.0-66.0); PLATELET COUNT, AUTOMATED 235 10^3/uL (150-450); RED BLOOD COUNT 4.26 10^6/uL (4.30-6.10); WHITE BLOOD COUNT 13.1 10^3/uL (4.0-10.0)
[2024-02-04 21:24] LABS: C REACTIVE PROTEIN QUANTITATIV < 0.40 MG/DL (<1.0)
[2024-02-04 21:30] VITALS: BP 155/84; TEMP 97.5; O2SAT 88
[2024-02-04 21:33] LABS: PROCALCITONIN 0.11 ng/ml
[2024-02-05] VITALS (11 sets, daily range): BP systolic 142–161; BP diastolic 76–87; TEMP 97.7–98.1; O2SAT 91–98
[2024-02-05 03:32] LABS: ABG BASE EXCESS 9.8 (-2.0-2.0); ABG HCO3 35.9 MMOL/L (22.0-26.0); ABG O2 SATURATION 88.1 % (95.0-99.0); ABG PARTIAL PRESSURE CO2 54.8 mmHg (35.0-45.0); ABG STANDARD HCO3 33.3 MMOL/L. (22.0-26.0); ABG TOTAL CO2 37.6 MMOL/L (23.0-31.0); ABG pH (ARTERIAL) 7.434 UNITS (7.350-7.450)
[2024-02-05 07:49] LABS: HEMATOCRIT 41.3 % (42.0-52.0); HEMOGLOBIN 12.5 g/dl (13.5-17.5); MEAN CORPUSCULAR HEMOGLOBIN 27.4 pg (27.0-33.0); MEAN CORPUSCULAR HGB CONC 30.3 g/dl (32.0-36.5); MEAN CORPUSCULAR VOLUME 90.4 fl (80.0-96.0); PLATELET COUNT, AUTOMATED 228 10^3/uL (150-450); RED BLOOD COUNT 4.57 10^6/uL (4.30-6.10); WHITE BLOOD COUNT 9.6 10^3/uL (4.0-10.0)
[2024-02-05 08:10] LABS: VENOUS HCO3 41.7 MMOL/L (23.0-27.0); VENOUS O2 SATURATION 77.2 % (60.0-80.0); VENOUS PARTIAL PRESSURE CO2 73.6 mmHg (38.0-50.0); VENOUS PARTIAL PRESSURE O2 45.3 mmHg (30.0-50.0); VENOUS PH 7.371 UNITS (7.330-7.430); VENOUS STANDARD HCO3 36.2 MMOL/L; VENOUS TOTAL CO2 43.9 MMOL/L (24.0-28.0)
[2024-02-05 08:20] LABS: ALBUMIN 3.4 G/DL (3.2-5.2); ALKALINE PHOSPHATASE 77 U/L (46-116); ALT/SGPT 35 U/L (7.0-40); AST/SGOT 32 U/L (<34); BILIRUBIN,TOTAL 0.6 MG/DL (0.3-1.2); BLOOD UREA NITROGEN 18 MG/DL (9-23); CALCIUM LEVEL 9.2 MG/DL (8.3-10.6); CARBON DIOXIDE LEVEL > 40.0 MMOL/L (20-31); CHLORIDE LEVEL 100 MMOL/L (98-107); CREATININE FOR GFR 0.65 MG/DL (0.70-1.30); GLOMERULAR FILTRATION RATE > 60.0 (>42); GLUCOSE, FASTING 143 MG/DL (74-106); PHOSPHORUS LEVEL 3.3 MG/DL (2.4-5.1); POTASSIUM SERUM 3.8 MMOL/L (3.5-5.1); SODIUM LEVEL 144 MMOL/L (136-145); TOTAL PROTEIN 6.8 G/DL (5.7-8.2)
[2024-02-05] MEDS ORDERED: ISOVUE-370 76% 100ML VIAL As Ordered ONE (09:16)
[2024-02-05] MEDS: VANICREAM MOISTURIZING SKIN CREAM 113GM TUBE TOP SCH (13:07)
[2024-02-06 03:40] VITALS: BP 149/86; TEMP 97.5; O2SAT 97
[2024-02-06 07:00] LABS: HEMATOCRIT 42.2 % (42.0-52.0); HEMOGLOBIN 12.8 g/dl (13.5-17.5); MEAN CORPUSCULAR HEMOGLOBIN 27.6 pg (27.0-33.0); MEAN CORPUSCULAR HGB CONC 30.3 g/dl (32.0-36.5); MEAN CORPUSCULAR VOLUME 91.1 fl (80.0-96.0); PLATELET COUNT, AUTOMATED 214 10^3/uL (150-450); RED BLOOD COUNT 4.63 10^6/uL (4.30-6.10); WHITE BLOOD COUNT 8.5 10^3/uL (4.0-10.0)
[2024-02-06 07:22] LABS: ALBUMIN 3.1 G/DL (3.2-5.2); ALKALINE PHOSPHATASE 71 U/L (46-116); ALT/SGPT 63 U/L (7.0-40); AST/SGOT 50 U/L (<34); BILIRUBIN,TOTAL 0.7 MG/DL (0.3-1.2); BLOOD UREA NITROGEN 20 MG/DL (9-23); CALCIUM LEVEL 8.7 MG/DL (8.3-10.6); CARBON DIOXIDE LEVEL > 40.0 MMOL/L (20-31); CHLORIDE LEVEL 101 MMOL/L (98-107); CREATININE FOR GFR 0.71 MG/DL (0.70-1.30); GLOMERULAR FILTRATION RATE > 60.0 (>42); GLUCOSE, FASTING 106 MG/DL (74-106); POTASSIUM SERUM 3.2 MMOL/L (3.5-5.1); SODIUM LEVEL 144 MMOL/L (136-145); TOTAL PROTEIN 6.3 G/DL (5.7-8.2)
[2024-02-06] MEDS: predniSONE 20 MG TAB PO SCH (09:48)
[2024-02-06] MEDS: POTASSIUM CHLORIDE 10MEQ SR TABLET PO ONE ×2 (09:50→11:57)
[2024-02-06 12:00] VITALS: BP 142/86; TEMP 97.9; O2SAT 96
[2024-02-06 13:13] VITALS: O2SAT 95
[2024-02-06 20:00] VITALS: BP 144/87; TEMP 97.7; O2SAT 90
[2024-02-06 22:09] VITALS: O2SAT 92
[2024-02-07 04:00] VITALS: BP 145/77; TEMP 97.3; O2SAT 95
[2024-02-07 06:23] LABS: HEMOGLOBIN 12.9 g/dl (13.5-17.5); MEAN CORPUSCULAR HEMOGLOBIN 27.2 pg (27.0-33.0); MEAN CORPUSCULAR VOLUME 90.7 fl (80.0-96.0); PLATELET COUNT, AUTOMATED 201 10^3/uL (150-450); RED BLOOD COUNT 4.74 10^6/uL (4.30-6.10); WHITE BLOOD COUNT 8.9 10^3/uL (4.0-10.0)
[2024-02-07 06:43] LABS: ALKALINE PHOSPHATASE 67 U/L (46-116); ALT/SGPT 84 U/L (7.0-40); AST/SGOT 49 U/L (<34); BILIRUBIN,TOTAL 0.7 MG/DL (0.3-1.2); BLOOD UREA NITROGEN 23 MG/DL (9-23); CALCIUM LEVEL 8.5 MG/DL (8.3-10.6); CARBON DIOXIDE LEVEL > 40.0 MMOL/L (20-31); CHLORIDE LEVEL 100 MMOL/L (98-107); CREATININE FOR GFR 0.81 MG/DL (0.70-1.30); GLOMERULAR FILTRATION RATE > 60.0 (>42); GLUCOSE, FASTING 104 MG/DL (74-106); POTASSIUM SERUM 3.5 MMOL/L (3.5-5.1); SODIUM LEVEL 140 MMOL/L (136-145); TOTAL PROTEIN 5.8 G/DL (5.7-8.2)
[2024-02-07] MEDS ORDERED: COLA100C5 PO (07:52)
[2024-02-07] MEDS ORDERED: MAGN400T2 PO (07:52)
[2024-02-07] MEDS ORDERED: POTA-136 PO (07:52)
[2024-02-07] MEDS ORDERED: ENTR1TAB PO (07:52)
[2024-02-07] MEDS ORDERED: LASI40TA9 PO (07:52)
[2024-02-07] MEDS ORDERED: FERR1TAB8 PO (07:52)
[2024-02-07] MEDS ORDERED: METO1TAB87 PO (07:52)
[2024-02-07] MEDS: predniSONE 20 MG TAB PO SCH (08:14)
[2024-02-07 08:15] VITALS: BP 141/90
[2024-02-07 12:00] VITALS: BP 128/86; TEMP 97.7; O2SAT 97
== END 2024-02-07 13:36 | disposition home or self-care (01) | DRG 291 ==
LOC: EDBD 15:25 → M ED 15:25 → M ED INP 20:45 → M MSPAV 02-03 01:39
PROVIDERS: ADMIT Internal Medicine; ATTEND Internal Medicine
PROC: B246ZZZ Ultrasonography of Right and Left Heart (ICD-10-PCS; principal; 2024-02-03)
DX: I11.0 Hypertensive heart disease with heart failure (principal); I50.33 Acute on chronic diastolic (congestive) heart failure; J96.21 Acute and chronic respiratory failure with hypoxia; K50.90 Crohn's disease, unspecified, without complications; J44.1 Chronic obstructive pulmonary disease with (acute) exacerbation; I27.23 Pulmonary hypertension due to lung diseases and hypoxia; I49.5 Sick sinus syndrome; I27.22 Pulmonary hypertension due to left heart disease; F32.A Depression, unspecified; E87.6 Hypokalemia; E11.9 Type 2 diabetes mellitus without complications; E83.42 Hypomagnesemia; F17.200 Nicotine dependence, unspecified, uncomplicated; Z95.0 Presence of cardiac pacemaker; Z99.81 Dependence on supplemental oxygen; Z79.01 Long term (current) use of anticoagulants; Z79.84 Long term (current) use of oral hypoglycemic drugs; Z79.899 Other long term (current) drug therapy; Z90.49 Acquired absence of other specified parts of digestive tract

== ENCOUNTER → 2024-03-30 | Outpatient (CLI) | payer MEDICARE ==
[~2024-03-30] MED LIST changes: +COLA100C5 PO; +DILT180C70 PO; +ELIQ2.5T PO; +ENTR1TAB PO; +FARX1TAB5 PO; +FERR1TAB8 PO; +LASI40TA9 PO; +MAGN400T2 PO; +METO1TAB87 PO; +PANT40TA29 PO; +PRAM0.123 PO; +QUET50TA4 PO
[2024-03-30 19:35] LABS: HEMOGLOBIN A1c 5.8 % (4.0-6.0)
== END ==
LOC: M WUC 13:18
PROVIDERS: ATTEND Physician Assistant
DX: E11.9 Type 2 diabetes mellitus without complications (principal); E05.80 Other thyrotoxicosis without thyrotoxic crisis or storm

== ENCOUNTER → 2024-06-02 | Outpatient (CLI) | payer MEDICARE ==
[2024-06-02 17:08] LABS: ALBUMIN 3.6 G/DL (3.2-5.2); ALKALINE PHOSPHATASE 70 U/L (40-129); ALT/SGPT 33 U/L (7.0-40); AST/SGOT 28 U/L (<34); BILIRUBIN,TOTAL 0.5 MG/DL (0.3-1.2); BLOOD UREA NITROGEN 19 MG/DL (9-23); CALCIUM LEVEL 10.2 MG/DL (8.3-10.6); CARBON DIOXIDE LEVEL 36 MMOL/L (20-31); CHLORIDE LEVEL 100 MMOL/L (98-107); GLOMERULAR FILTRATION RATE > 60.0 (>42); GLUCOSE, FASTING 99 MG/DL (74-106); MAGNESIUM LEVEL 1.7 MG/DL (1.8-2.4); POTASSIUM SERUM 4.1 MMOL/L (3.5-5.1); SODIUM LEVEL 143 MMOL/L (136-145); TOTAL PROTEIN 7.4 G/DL (5.7-8.2)
[2024-06-02 17:12] LABS: BASO # 0.1 10^3/uL (0.0-0.2); BASO % 1.8 % (0.0-1.0); EOS # 0.2 10^3/uL (0.0-0.5); EOS % 2.8 % (0.0-3.0); HEMATOCRIT 41.4 % (42.0-52.0); HEMOGLOBIN 12.4 g/dl (13.5-17.5); LYMPH # 1.1 10^3/uL (1.5-5.0); MEAN CORPUSCULAR HEMOGLOBIN 27.7 pg (27.0-33.0); MEAN CORPUSCULAR VOLUME 92.6 fl (80.0-96.0); MONO # 0.6 10^3/uL (0.0-0.8); MONO % 8.9 % (2.0-8.0); NEUTROPHILS % 70.4 % (36.0-66.0); PLATELET COUNT, AUTOMATED 247 10^3/uL (150-450); RED BLOOD COUNT 4.47 10^6/uL (4.30-6.10); WHITE BLOOD COUNT 7.1 10^3/uL (4.0-10.0)
== END ==
LOC: M WUC 10:08
PROVIDERS: ATTEND Physician Assistant
DX: I11.0 Hypertensive heart disease with heart failure (principal); E11.9 Type 2 diabetes mellitus without complications

== ENCOUNTER → 2024-07-19 | Outpatient (CLI) | payer MEDICARE ==
[~2024-07-19] MED LIST changes: +FERR325T3 PO; +FURO80TA2 PO; +POTA-151 PO; +TREL1AER INH; +VARE1TAB2 PO
== END ==
LOC: M RAD 15:09
PROVIDERS: ATTEND Internal Medicine Pulmonary Disease
DX: R91.8 Other nonspecific abnormal finding of lung field (principal); J90 Pleural effusion, not elsewhere classified; I51.7 Cardiomegaly; R18.8 Other ascites; N28.1 Cyst of kidney, acquired; Z95.0 Presence of cardiac pacemaker

== ENCOUNTER 2024-07-22 13:28 | Inpatient (IN) | payer MEDICARE ==
[2024-07-21] MEDS: INSULIN LISPRO (NovoLOG) PER UNIT SC SCH (23:23)
[~2024-07-22] VITALS: Ht 175.3 cm; Wt 102.0 kg
[~2024-07-22 13:28] MED LIST changes: -FERR325T3 PO; -FURO80TA2 PO; -POTA-151 PO; -TREL1AER INH; -VARE1TAB2 PO
[2024-07-22] MEDS ORDERED: TREL1AER INH (14:50)
[2024-07-22] MEDS ORDERED: FURO80TA2 PO (14:50)
[2024-07-22] MEDS ORDERED: ATEN25TA PO (14:50)
[2024-07-22] MEDS ORDERED: POTA-151 PO (14:50)
[2024-07-22] MEDS ORDERED: FERR325T3 PO (14:50)
[2024-07-22] MEDS ORDERED: ELIQ5TAB PO (14:50)
[2024-07-22] MEDS ORDERED: VARE1TAB2 PO (14:50)
[2024-07-22] MEDS ORDERED: HOME MED LIST COMPLETE! XX SCH (14:55)
[2024-07-22 15:07] LABS: EOS # 0.1 10^3/uL (0.0-0.5); EOS % 1.7 % (0.0-3.0); HEMATOCRIT 31.9 % (42.0-52.0); HEMOGLOBIN 9.7 g/dl (13.5-17.5); LYMPH # 0.4 10^3/uL (1.5-5.0); LYMPH % 9.2 % (24.0-44.0); MEAN CORPUSCULAR HEMOGLOBIN 27.2 pg (27.0-33.0); MEAN CORPUSCULAR HGB CONC 30.4 g/dl (32.0-36.5); MEAN CORPUSCULAR VOLUME 89.4 fl (80.0-96.0); MONO # 0.4 10^3/uL (0.0-0.8); MONO % 10.2 % (2.0-8.0); NEUTROPHILS # 3.1 10^3/uL (1.5-8.5); NEUTROPHILS % 77.7 % (36.0-66.0); PLATELET COUNT, AUTOMATED 112 10^3/uL (150-450); RED BLOOD COUNT 3.57 10^6/uL (4.30-6.10)
[2024-07-22 15:13] LABS: ABG BASE EXCESS 10.4 (-2.0-2.0); ABG HCO3 36.7 MMOL/L (22.0-26.0); ABG O2 SATURATION 98.8 % (95.0-99.0); ABG PARTIAL PRESSURE CO2 59.2 mmHg (35.0-45.0); ABG PARTIAL PRESSURE O2 152.1 mmHg (75.0-100.0); ABG STANDARD HCO3 34.2 MMOL/L. (22.0-26.0); ABG TOTAL CO2 38.5 MMOL/L (23.0-31.0)
[2024-07-22 15:39] LABS: THYROID STIMULATING HORMONE 3.187 uIU/ML (0.55-4.78); THYROXINE (T4) 5.7 UG/DL (4.5-10.9)
[2024-07-22 15:42] LABS: ALBUMIN 3.3 G/DL (3.2-5.2); ALKALINE PHOSPHATASE 38 U/L (40-129); ALT/SGPT 38 U/L (7.0-40); AST/SGOT 67 U/L (<34); BILIRUBIN,DIRECT 0.6 MG/DL (<0.4); BILIRUBIN,TOTAL 1.1 MG/DL (0.3-1.2); BLOOD UREA NITROGEN 28 MG/DL (9-23); CALCIUM LEVEL 9.5 MG/DL (8.3-10.6); CARBON DIOXIDE LEVEL > 40.0 MMOL/L (20-31); CHLORIDE LEVEL 100 MMOL/L (98-107); CK-MB VALUE MASS 5.2 NG/ML (<3.6); CPK CREATINE PHOSPHOKINASE 225 U/L (46-171); CREATININE FOR GFR 1.36 MG/DL (0.70-1.30); GLOMERULAR FILTRATION RATE 54.5 (>42); GLUCOSE, FASTING 88 MG/DL (74-106); MB/CK RELATIVE INDEX 2.31 (< OR =4); POTASSIUM SERUM 4.4 MMOL/L (3.5-5.1); SODIUM LEVEL 145 MMOL/L (136-145); TOTAL PROTEIN 6.5 G/DL (5.7-8.2)
[2024-07-22] MEDS ORDERED: ISOVUE-370 76% 100ML VIAL As Ordered ONE (15:48)
[2024-07-22] MEDS: FUROSEMIDE 100MG/10ML VIAL IV ONE (15:50)
[2024-07-22] MEDS: DOXYCYCLINE HYCLATE 100 MG in DEXTROSE 5% (D5W) MINI-BAG PLU 100 ML IV ONE (16:30)
[2024-07-22] MEDS ORDERED: FUROSEMIDE 80 MG TAB PO SCH (17:00)
[2024-07-22 17:02] LABS: CK-MB VALUE MASS 4.5 NG/ML (<3.6); MB/CK RELATIVE INDEX 2.29 (< OR =4)
[2024-07-22] MEDS: IPRATROPIUM 0.5MG/ALBUTEROL 2.5MG INH SOL UD 3ML (DUONEB) NEB ONE (17:02)
[2024-07-22] MEDS: ALBUTEROL SULFATE 2.5MG/0.5ML INH NEB SOLN INH ONE (17:03)
[2024-07-22] MEDS: methylPREDNISolone 125MG 2ML VIAL IV ONE (17:48)
[2024-07-22] MEDS: cefTRIAXone SOD 2 GM in DEXTROSE 5% (D5W) ADV/MINI-BAG 50 ML IV ONE (17:48)
[2024-07-22] MEDS ORDERED: ACETAMINOPHEN 325 MG TAB PO PRN (18:00)
[2024-07-22] MEDS ORDERED: ALBUTEROL 90 MCG/ACT 8GM HFA INHALER INH PRN (18:00)
[2024-07-22] MEDS ORDERED: GLUCAGON INJ 1MG VIAL SC PRN (18:30)
[2024-07-22] MEDS ORDERED: GLUCOSE 4 GM CHEW PO PRN (18:30)
[2024-07-22] MEDS ORDERED: DEXTROSE 50% 50ML SYRINGE IV PRN (18:30)
[2024-07-22] MEDS: ADVAIR HFA 115/21MCG INHALER INH SCH (18:55)
[2024-07-22 18:57] VITALS: O2SAT 99
[2024-07-22 19:51] LABS: INR 1.38; PROTHROMBIN TIME 17.2 SECONDS (12.5-14.5)
[2024-07-22 20:00] LABS: PERCENT SATURATION 12.4 % (19.7-50.0)
[2024-07-22 20:02] LABS: FERRITIN 31.4 NG/ML (10.5-307.3)
[2024-07-22 20:03] LABS: FOLATE 18.02 NG/ML (>5.4)
[2024-07-22 20:12] LABS: PROCALCITONIN 0.09 ng/ml
[2024-07-22] MEDS: FUROSEMIDE 100MG/10ML VIAL IV SCH (21:30)
[2024-07-22 23:01] VITALS: BP 134/67; TEMP 98.1; O2SAT 96
[2024-07-22] MEDS: DAPAGLIFLOZIN PROPANEDIOL 10MG TABLET (FARXIGA) PO SCH (23:11)
[2024-07-22] MEDS: PARoxetine 20MG TABLET PO SCH (23:11)
[2024-07-22] MEDS: PANTOPRAZOLE 40MG TAB (PROTONIX) PO SCH (23:12)
[2024-07-22 23:53] VITALS: BP 137/89; TEMP 98; O2SAT 96
[2024-07-23] MEDS: FERROUS SULFATE 325MG TAB PO SCH (00:25)
[2024-07-23] MEDS: PRAMIPEXOLE (MIRAPEX) 0.125 MG TAB PO SCH (00:25)
[2024-07-23] MEDS: PRAVASTATIN 20 MG TAB PO SCH (00:25)
[2024-07-23] MEDS: atenoloL 25 MG TAB PO SCH (00:26)
[2024-07-23] MEDS: VARENICLINE 1MG TABLET PO SCH (00:26)
[2024-07-23] MEDS: QUEtiapine FUMARATE 50MG TAB PO SCH (00:26)
[2024-07-23] MEDS: NICOTINE 14 MG/24 HR TRANSDERMAL TD SCH (00:27)
[2024-07-23 03:21] VITALS: BP 116/62; TEMP 97.3; O2SAT 92
[2024-07-23 06:23] LABS: HEMATOCRIT 27.7 % (42.0-52.0); HEMOGLOBIN 8.5 g/dl (13.5-17.5); MEAN CORPUSCULAR HEMOGLOBIN 26.6 pg (27.0-33.0); MEAN CORPUSCULAR HGB CONC 30.7 g/dl (32.0-36.5); MEAN CORPUSCULAR VOLUME 86.8 fl (80.0-96.0); RED BLOOD COUNT 3.19 10^6/uL (4.30-6.10); WHITE BLOOD COUNT 4.2 10^3/uL (4.0-10.0)
[2024-07-23] MEDS: DOXYCYCLINE HYCLATE 100MG TABLET PO SCH (06:29)
[2024-07-23 06:41] LABS: ALBUMIN 3.1 G/DL (3.2-5.2); ALKALINE PHOSPHATASE 39 U/L (40-129); ALT/SGPT 29 U/L (7.0-40); AST/SGOT 51 U/L (<34); BILIRUBIN,TOTAL 1.1 MG/DL (0.3-1.2); BLOOD UREA NITROGEN 26 MG/DL (9-23); CALCIUM LEVEL 8.9 MG/DL (8.3-10.6); CARBON DIOXIDE LEVEL > 40.0 MMOL/L (20-31); CHLORIDE LEVEL 95 MMOL/L (98-107); GLOMERULAR FILTRATION RATE 57.4 (>42); GLUCOSE, FASTING 113 MG/DL (74-106); POTASSIUM SERUM 3.2 MMOL/L (3.5-5.1); SODIUM LEVEL 144 MMOL/L (136-145); TOTAL PROTEIN 5.9 G/DL (5.7-8.2)
[2024-07-23 06:46] LABS: PLATELET COUNT, AUTOMATED 96 10^3/uL (150-450)
[2024-07-23 07:38] VITALS: BP 126/80; TEMP 98.2; O2SAT 98
[2024-07-23] MEDS: TIOTROPIUM INHALER/CAPSULE (SPIRIVA) INH SCH (07:41)
[2024-07-23] MEDS: INSULIN LISPRO (NovoLOG) PER UNIT SC SCH (08:22)
[2024-07-23] MEDS: POTASSIUM CHLORIDE 10MEQ SR TABLET PO ONE (08:24)
[2024-07-23] MEDS ORDERED: PILL CUTTER 1 EACH XX ONE (08:28)
[2024-07-23] MEDS: POTASSIUM CHLORIDE 10MEQ SR TABLET PO SCH (08:30)
[2024-07-23 11:50] VITALS: BP 104/79; TEMP 98.2; O2SAT 99
[2024-07-23 16:31] VITALS: BP 106/71; TEMP 97.9; O2SAT 97
[2024-07-23] MEDS ORDERED: cefTRIAXone SOD 1 GM in DEXTROSE 5% (D5W) ADV/MINI-BAG 50 ML IV SCH (18:00)
[2024-07-23 20:09] VITALS: BP 130/78; TEMP 97.6; O2SAT 98
[2024-07-24 00:09] VITALS: BP 102/74; TEMP 98.1; O2SAT 94
[2024-07-24] MEDS: NICOTINE 14 MG/24 HR TRANSDERMAL TD SCH (01:07)
[2024-07-24 04:29] VITALS: BP_SYST 105; BP_SYST 98; BP_DIAS 64; BP_DIAS 75; TEMP 97.2; O2SAT 99
[2024-07-24 06:37] LABS: HEMATOCRIT 28.2 % (42.0-52.0); HEMOGLOBIN 8.8 g/dl (13.5-17.5); MEAN CORPUSCULAR HEMOGLOBIN 27.4 pg (27.0-33.0); MEAN CORPUSCULAR HGB CONC 31.2 g/dl (32.0-36.5); MEAN CORPUSCULAR VOLUME 87.9 fl (80.0-96.0); PLATELET COUNT, AUTOMATED 114 10^3/uL (150-450); RED BLOOD COUNT 3.21 10^6/uL (4.30-6.10); WHITE BLOOD COUNT 6.3 10^3/uL (4.0-10.0)
[2024-07-24 06:58] LABS: ALBUMIN 3.1 G/DL (3.2-5.2); BILIRUBIN,TOTAL 1.4 MG/DL (0.3-1.2); CREATININE FOR GFR 1.56 MG/DL (0.70-1.30); GLOMERULAR FILTRATION RATE 46.5 (>42); POTASSIUM SERUM 3.8 MMOL/L (3.5-5.1); TOTAL PROTEIN 5.8 G/DL (5.7-8.2)
[2024-07-24 08:08] VITALS: BP 121/78; TEMP 97; O2SAT 100
[2024-07-24] MEDS: NICOTINE 21MG/24HR 1 EA TRANSDERMAL TD SCH (09:16)
[2024-07-24] MEDS: FUROSEMIDE injection 100 MG, VIAL 2 BAG 13MM ADAPTER 1 EACH in NS 100 ML IV SCH (10:44)
[2024-07-24 12:03] VITALS: BP 120/78; TEMP 97.4; O2SAT 97
[2024-07-24 16:16] VITALS: BP 107/78; TEMP 98; O2SAT 94
[2024-07-24] MEDS: SPIRONOLACTONE 12.5MG PER 1/2 TABLET PO SCH (17:38)
[2024-07-24 20:26] VITALS: BP 119/59; TEMP 97.2; O2SAT 98
[2024-07-25] VITALS (8 sets, daily range): BP systolic 83–137; BP diastolic 54–90; TEMP 97–98.6; O2SAT 91–98
[2024-07-25 06:41] LABS: HEMATOCRIT 31.2 % (42.0-52.0); HEMOGLOBIN 9.7 g/dl (13.5-17.5); MEAN CORPUSCULAR HEMOGLOBIN 27.2 pg (27.0-33.0); MEAN CORPUSCULAR HGB CONC 31.1 g/dl (32.0-36.5); MEAN CORPUSCULAR VOLUME 87.6 fl (80.0-96.0); PLATELET COUNT, AUTOMATED 124 10^3/uL (150-450); RED BLOOD COUNT 3.56 10^6/uL (4.30-6.10)
[2024-07-25 07:20] LABS: ALBUMIN 3.4 G/DL (3.2-5.2); BILIRUBIN,TOTAL 1.8 MG/DL (0.3-1.2); CALCIUM LEVEL 9.4 MG/DL (8.3-10.6); CREATININE FOR GFR 1.6 MG/DL (0.70-1.30); GLOMERULAR FILTRATION RATE 45.2 (>42); POTASSIUM SERUM 4.2 MMOL/L (3.5-5.1)
[2024-07-25 07:21] LABS: TOTAL PROTEIN 6.4 G/DL (5.7-8.2)
[2024-07-25] MEDS: MIDODRINE 5 MG TAB PO SCH (10:19)
[2024-07-25] MEDS: NICOTINE 21MG/24HR 1 EA TRANSDERMAL TD SCH (21:21)
[2024-07-26] VITALS (7 sets, daily range): BP systolic 106–133; BP diastolic 62–85; PULSE 60; TEMP 97–98.3; O2SAT 93–99
[2024-07-26 07:36] LABS: CALCIUM LEVEL 9.7 MG/DL (8.3-10.6); CREATININE FOR GFR 1.54 MG/DL (0.70-1.30); GLOMERULAR FILTRATION RATE 47.2 (>42); POTASSIUM SERUM 4.1 MMOL/L (3.5-5.1)
[2024-07-26] MEDS: metOLazone 2.5 MG TAB PO SCH (09:55)
[2024-07-27 04:21] VITALS: BP 128/75; TEMP 97.1; O2SAT 99
[2024-07-27 06:30] LABS: BLOOD UREA NITROGEN 40 MG/DL (9-23); CALCIUM LEVEL 9.5 MG/DL (8.3-10.6); CARBON DIOXIDE LEVEL > 40.0 MMOL/L (20-31); CHLORIDE LEVEL 90 MMOL/L (98-107); CREATININE FOR GFR 1.49 MG/DL (0.70-1.30); GLOMERULAR FILTRATION RATE 49.1 (>42); GLUCOSE, FASTING 88 MG/DL (74-106); MAGNESIUM LEVEL 1.9 MG/DL (1.8-2.4); POTASSIUM SERUM 3.6 MMOL/L (3.5-5.1); SODIUM LEVEL 142 MMOL/L (136-145)
[2024-07-27 07:18] VITALS: BP 119/69; TEMP 97.7; O2SAT 99
[2024-07-27] MEDS: POTASSIUM CHLORIDE 10MEQ SR TABLET PO ONE (08:01)
[2024-07-27] MEDS: SPIRONOLACTONE 25 MG TAB PO SCH (08:02)
[2024-07-27 12:00] VITALS: BP 106/67; TEMP 97.7; O2SAT 99
[2024-07-27 16:23] VITALS: BP 115/71; TEMP 97.6; O2SAT 99
[2024-07-27] MEDS: BUMETANIDE 1 MG TAB PO SCH (19:00)
[2024-07-27 20:02] VITALS: BP 121/61; TEMP 97.5; O2SAT 97
[2024-07-27 23:58] VITALS: BP 110/80; TEMP 98; O2SAT 97
[2024-07-28 04:45] VITALS: BP 102/67; TEMP 97.5; O2SAT 98
[2024-07-28 04:51] LABS: BLOOD UREA NITROGEN 43 MG/DL (9-23); CALCIUM LEVEL 10.3 MG/DL (8.3-10.6); CARBON DIOXIDE LEVEL > 40.0 MMOL/L (20-31); CHLORIDE LEVEL 91 MMOL/L (98-107); CREATININE FOR GFR 1.43 MG/DL (0.70-1.30); GLOMERULAR FILTRATION RATE 51.5 (>42); GLUCOSE, FASTING 108 MG/DL (74-106); MAGNESIUM LEVEL 1.8 MG/DL (1.8-2.4); POTASSIUM SERUM 3.9 MMOL/L (3.5-5.1); SODIUM LEVEL 141 MMOL/L (136-145)
[2024-07-28 07:42] VITALS: BP_SYST 105; BP_SYST 96; BP_DIAS 64; BP_DIAS 70; TEMP 97.2; O2SAT 96
[2024-07-28] MEDS ORDERED: ALDA25TA2 PO (11:54)
[2024-07-28] MEDS ORDERED: BUME1TAB3 PO (11:54)
[2024-07-28] MEDS ORDERED: METO25TA PO (11:54)
[2024-07-28] MEDS ORDERED: MIDO5TA PO (11:54)
[2024-07-28 12:03] VITALS: BP 108/76
[2024-07-29 07:26] VITALS: BP 155/73; TEMP 100.8; O2SAT 96
== END 2024-07-28 15:42 | disposition home health service (06) | DRG 291 ==
LOC: M ED 13:28 → M ED INP 18:00 → M PCU 22:47
PROVIDERS: ADMIT Internal Medicine; ATTEND Student in an Organized Health Care Education/Training Program
PROC: B246ZZZ Ultrasonography of Right and Left Heart (ICD-10-PCS; principal; 2024-07-23)
DX: I13.0 Hypertensive heart and chronic kidney disease with heart failure and stage 1 through stage 4 chronic kidney disease, or unspecified chronic kidney disease (principal); I50.43 Acute on chronic combined systolic (congestive) and diastolic (congestive) heart failure; J96.11 Chronic respiratory failure with hypoxia; J98.11 Atelectasis; N17.9 Acute kidney failure, unspecified; D68.32 Hemorrhagic disorder due to extrinsic circulating anticoagulants; D62 Acute posthemorrhagic anemia; E87.22 Chronic metabolic acidosis; J44.9 Chronic obstructive pulmonary disease, unspecified; I49.5 Sick sinus syndrome; F32.A Depression, unspecified; E66.9 Obesity, unspecified; F17.200 Nicotine dependence, unspecified, uncomplicated; I27.22 Pulmonary hypertension due to left heart disease; D50.9 Iron deficiency anemia, unspecified; D69.6 Thrombocytopenia, unspecified; E78.5 Hyperlipidemia, unspecified; M79.81 Nontraumatic hematoma of soft tissue; E87.6 Hypokalemia; E11.22 Type 2 diabetes mellitus with diabetic chronic kidney disease; N18.9 Chronic kidney disease, unspecified; K21.9 Gastro-esophageal reflux disease without esophagitis; Z99.81 Dependence on supplemental oxygen; Z79.01 Long term (current) use of anticoagulants; Z79.899 Other long term (current) drug therapy; Z95.0 Presence of cardiac pacemaker; Z90.49 Acquired absence of other specified parts of digestive tract; Z68.35 Body mass index [BMI] 35.0-35.9, adult

== ENCOUNTER → 2024-08-22 | Outpatient (CLI) | payer MEDICARE ==
[~2024-08-22] MED LIST changes: +ALDA25TA2 PO; +BUME1TAB3 PO; +FERR325T3 PO; +FURO80TA2 PO; +METO25TA PO; +MIDO5TA PO; +POTA-151 PO; +TREL1AER INH; +VARE1TAB2 PO
[2024-08-22 18:06] LABS: ALBUMIN 3.9 G/DL (3.2-5.2); BASO # 0.1 10^3/uL (0.0-0.2); BASO % 1.5 % (0.0-1.0); CALCIUM LEVEL 10.5 MG/DL (8.3-10.6); CREATININE FOR GFR 1.98 MG/DL (0.70-1.30); EOS # 0.1 10^3/uL (0.0-0.5); EOS % 1.4 % (0.0-3.0); GLOMERULAR FILTRATION RATE 35.4 (>42); HEMATOCRIT 45.5 % (42.0-52.0); LYMPH # 1.2 10^3/uL (1.5-5.0); MEAN CORPUSCULAR HGB CONC 30.8 g/dl (32.0-36.5); MONO # 0.5 10^3/uL (0.0-0.8); MONO % 7.4 % (2.0-8.0); NEUTROPHILS # 5.3 10^3/uL (1.5-8.5); NEUTROPHILS % 72.3 % (36.0-66.0); PERCENT SATURATION 28.4 % (19.7-50.0); PHOSPHORUS LEVEL 4.3 MG/DL (2.4-5.1); PLATELET COUNT, AUTOMATED 224 10^3/uL (150-450); POTASSIUM SERUM 4.8 MMOL/L (3.5-5.1); WHITE BLOOD COUNT 7.3 10^3/uL (4.0-10.0)
[2024-08-22 18:08] LABS: FERRITIN 141.8 NG/ML (10.5-307.3)
== END ==
LOC: M WUC 14:18
PROVIDERS: ATTEND Internal Medicine Cardiovascular Disease
DX: I50.810 Right heart failure, unspecified (principal); I48.0 Paroxysmal atrial fibrillation; D50.9 Iron deficiency anemia, unspecified

== ENCOUNTER → 2024-09-04 | Outpatient (CLI) | payer MEDICARE ==
[2024-09-04 14:15] LABS: HEMATOCRIT 42.6 % (42.0-52.0); HEMOGLOBIN 13.1 g/dl (13.5-17.5); MEAN CORPUSCULAR HEMOGLOBIN 28.7 pg (27.0-33.0); MEAN CORPUSCULAR HGB CONC 30.8 g/dl (32.0-36.5); MEAN CORPUSCULAR VOLUME 93.2 fl (80.0-96.0); PLATELET COUNT, AUTOMATED 314 10^3/uL (150-450); RED BLOOD COUNT 4.57 10^6/uL (4.30-6.10); WHITE BLOOD COUNT 6.9 10^3/uL (4.0-10.0)
[2024-09-04 14:32] LABS: ALBUMIN 3.4 G/DL (3.2-5.2); CALCIUM LEVEL 9.6 MG/DL (8.3-10.6); CREATININE FOR GFR 1.27 MG/DL (0.70-1.30); PHOSPHORUS LEVEL 4.1 MG/DL (2.4-5.1)
== END ==
LOC: M WUC 11:00
PROVIDERS: ATTEND Internal Medicine Cardiovascular Disease
DX: I50.810 Right heart failure, unspecified (principal); I48.0 Paroxysmal atrial fibrillation; I27.81 Cor pulmonale (chronic)

== ENCOUNTER 2024-09-11 14:55 | Emergency (ER) | payer MEDICARE ==
[~2024-09-11] VITALS: Ht 177.8 cm; Wt 81.9 kg
[2024-09-11 14:57] VITALS: TEMP 97
[2024-09-11 17:18] LABS: BASO # 0.1 10^3/uL (0.0-0.2); BASO % 0.7 % (0.0-1.0); EOS % 0.4 % (0.0-3.0); HEMOGLOBIN 12.5 g/dl (13.5-17.5); LYMPH # 0.5 10^3/uL (1.5-5.0); LYMPH % 7.2 % (24.0-44.0); MEAN CORPUSCULAR HEMOGLOBIN 29.1 pg (27.0-33.0); MEAN CORPUSCULAR HGB CONC 32.1 g/dl (32.0-36.5); MEAN CORPUSCULAR VOLUME 90.9 fl (80.0-96.0); MONO # 0.3 10^3/uL (0.0-0.8); MONO % 4.1 % (2.0-8.0); NEUTROPHILS % 87.3 % (36.0-66.0); PLATELET COUNT, AUTOMATED 226 10^3/uL (150-450); RED BLOOD COUNT 4.29 10^6/uL (4.30-6.10); WHITE BLOOD COUNT 6.9 10^3/uL (4.0-10.0)
[2024-09-11 17:28] LABS: INR 1.26; PROTHROMBIN TIME 16.1 SECONDS (12.5-14.5)
[2024-09-11 17:51] LABS: CALCIUM LEVEL 10.1 MG/DL (8.3-10.6); CREATININE FOR GFR 1.31 MG/DL (0.70-1.30); GLOMERULAR FILTRATION RATE 56.9 (>42); POTASSIUM SERUM 4.7 MMOL/L (3.5-5.1)
[2024-09-11] MEDS ORDERED: ISOVUE-370 76% 100ML VIAL As Ordered ONE (18:24)
[2024-09-11 22:03] VITALS: BP 133/82; O2SAT 97
== END 2024-09-11 22:53 | disposition home or self-care (01) ==
LOC: M ED 14:55
DX: R11.10 Vomiting, unspecified (principal); I50.22 Chronic systolic (congestive) heart failure; I25.2 Old myocardial infarction; E11.9 Type 2 diabetes mellitus without complications; I11.0 Hypertensive heart disease with heart failure; E78.5 Hyperlipidemia, unspecified; F17.210 Nicotine dependence, cigarettes, uncomplicated; Z79.51 Long term (current) use of inhaled steroids; Z79.01 Long term (current) use of anticoagulants; Z79.899 Other long term (current) drug therapy
CPT/HCPCS: 36415; 74018; 74177; 80048; 83690; 85025; 85610; 99283; Q9967

== ENCOUNTER → 2024-09-11 | Outpatient (CLI) | payer MEDICARE | LOC: M RAD 14:42 | PROVIDERS: ATTEND Internal Medicine Pulmonary Disease | DX: R91.8 Other nonspecific abnormal finding of lung field (principal) ==

== ENCOUNTER → 2024-09-13 | Outpatient (CLI) | payer MEDICARE | LOC: M CARPUL 07:38 | PROVIDERS: ATTEND Internal Medicine Cardiovascular Disease | DX: I50.810 Right heart failure, unspecified (principal); I27.81 Cor pulmonale (chronic); I35.0 Nonrheumatic aortic (valve) stenosis ==